=== PATIENT | female | born 1950 | race Caucasian/White ===

== ENCOUNTER → 2017-04-20 08:50 | Outpatient (CLI) | payer MEDICARE, OTHER, MEDICAID, SELFPAY ==
--- NOTE | 2017-04-20 09:07 | MM_ITS ---
MM Dig screening mamm BI w/CAD CAD Screening COMPARISON: Digital mammograms 04/14/2016 and 6 month follow-up digital mammogram left breast 10/27/2016 INDICATION: There is a history of breast cancer in patient's mother diagnosed after menopause and 2 sisters diagnosed before menopause. TECHNIQUE: Standard CC and MLO images were obtained. R2 CAD reviewed. FINDINGS: Moderate diffuse fibroglandular densities are seen in the central portions of both breast and the findings are fairly symmetrical bilaterally. There are stable benign-appearing calcination is in each breast and there is a mole marker left breast. There is no suspicious lesion and no suspicious microcalcifications. IMPRESSION: Stable exam with no suspicious lesion seen recommend yearly follow-up BI-RADS Category: 2 Benign Finding(s) RECOMMENDED FOLLOW-UP: 1YR - 1 YEAR FOLLOW-UP (A letter has been sent to the patient regarding results of the study.)
--- NOTE | 2017-04-20 09:07 | US_ITS ---
US breast LT complete COMPARISON: Ultrasound left breast 10/27/2016 INDICATION: Six-month follow-up ORDERING PHYSICIAN: Nathalie Linarse PATIENT AGE: 67 years TECHNIQUE: Targeted ultrasound upper outer quadrant left breast FINDINGS: There is moderate heterogenic echogenicity consistent with the findings on the mammogram performed the same date again noted is a tiny hypoechoic and likely cystic lesion at the 3:00 position outer breast measuring 0.5 x 0.3 x 0.6 cm. There is normal appearing node in the axilla. No other abnormality seen. IMPRESSION: Stable tiny hypoechoic lesion likely a small cyst in a background of diffuse fibrocystic change, recommend patient continue with yearly screening mammography BI-RADS Category: 2 Benign Finding(s) RECOMMENDED FOLLOW-UP: 1YR - 1 YEAR FOLLOW-UP (A letter has been sent to the patient regarding results of the study.)
== END ==
PROVIDERS: Family Provider Family Medicine; PCP Physician Assistant; Visit Provider Physician Assistant
DX: Z12.31 Encounter for screening mammogram for malignant neoplasm of breast (principal); R92.8 Other abnormal and inconclusive findings on diagnostic imaging of breast
CPT/HCPCS: 19083; 76641; 77067

== ENCOUNTER → 2018-05-04 10:08 | Outpatient (CLI) | payer MEDICARE, MEDICAID, SELFPAY ==
--- NOTE | 2018-05-04 10:15 | MM_ITS ---
MM Dig screening mamm BI w/CAD ORDERING PHYSICIAN : Nathalie Linares PATIENT AGE: 68 years GENDER: Female COMPARISON: April 2016, April 2017, March 2015. Ultrasound, April 2016 INDICATION: Routine SCREENING. No hormones. No new complaints. Positive Family history noted. Mother with breast cancer age 60; also 2 sisters: age 38 and 50 TECHNIQUE: Standard CC and MLO images were obtained. R2 CAD reviewed. FINDINGS: Moderately dense heterogeneous breasts. This pattern does somewhat decrease sensitivity of mammography. Mild asymmetry... RIGHT BREAST:No new findings of concern at the right breast. A dense cluster of benign calcifications seen at the inferior breast and superior breast as well as deep superior breast. No significant change. LEFT BREAST:. . Small 5.3 mm nodular density labeled X at the deep mid left breast on today's MLO view. Unimpressive slightly more evident today.. Suspect located laterally on the cc view towards 3 o'clock position., & Less likely deep medial breast... A small debris filled cyst was previously identified noted 3:00 on previous ultrasounds and may correlate but since this area slightly more evident today, would suggest additional evaluation particularly in this patient with positive family history. Of possibly the small cyst as previously seen at 3:00 on previous ultrasound from April 2017 and 2016, could account for this area... Also has a few small skin moles which could conceivably account for this density.. Suggest patient return for spot views and ultrasound left breast... IMPRESSION: LEFT BREAST: .Just over 5 mm small round density deep left breast.; More likely towards 3 o'clock position. . A small debris filled cyst was previously seen in this region and may account for this density. However since it is slightly more evident and more generous size on today's MLO study studies, would suggest additional imaging at this time, particularly view of family history.... (Spot views along with ultrasound left breast recommended..). RIGHT BREAST. No new findings. Follow-up in one year. BI-RADS Category: 0 Need Additional Imaging Evaluation RECOMMENDED FOLLOW-UP: IMM - IMMEDIATE FOLLOW-UP RECOMMENDED (A letter has been sent to the patient regarding results of the study.)
== END ==
PROVIDERS: PCP Physician Assistant; Visit Provider Physician Assistant
DX: Z12.31 Encounter for screening mammogram for malignant neoplasm of breast (principal)
CPT/HCPCS: 77067

== ENCOUNTER → 2018-05-18 13:14 | Outpatient (CLI) | payer MEDICARE, MEDICAID, SELFPAY ==
--- NOTE | 2018-05-18 13:20 | MM_ITS ---
MM Dig mamm DX unilat LT CAD: Left breast ultrasound complete with axilla: INDICATION: Follow-up abnormal mammogram ORDERING PHYSICIAN: Nathalie Linares PATIENT AGE: 68 years COMPARISON: 05/04/2018, 04/20/2017 TECHNIQUE: Proximal soft tissues of the left breast along with left breast ultrasound FINDINGS: Average fibroglandular tissue. There is persistent small areas of asymmetric density in the lateral aspect of the left breast as seen on the cc view. The asymmetry in the medial aspect of the left breast is not confirmed on the spot compression views. There is a persistent 4 mm nodular density in the lateral aspect of the left breast at the 3:00 position which is correspond to the abnormality noted on the screening exam. This does appear well-circumscribed on the rolled views. No malignant appearing mass or malignant microcalcification Left breast ultrasound: 6 mm hypoechoic nodule at 3:00 with some low-level echoes and may represent complex cyst as before. No suspicious nodules evident. This was present on 04/20/2017 ultrasound and is unchanged. IMPRESSION: Nodular density lateral aspect left breast likely corresponds to a debris filled cyst on the ultrasound. No convincing evidence of malignancy. Recommend 6 month follow-up for confirmation due to the increased prominence on the mammogram and low level echoes on ultrasound BI-RADS Category: 3 Probably Benign Finding Short Term Follow-up RECOMMENDED FOLLOW-UP: 6M - 6 MONTH FOLLOW-UP (A letter has been sent to the patient regarding results of the study.)
== END ==
PROVIDERS: PCP Physician Assistant; Visit Provider Physician Assistant
DX: R92.8 Other abnormal and inconclusive findings on diagnostic imaging of breast (principal)
CPT/HCPCS: 76641; 77065

== ENCOUNTER → 2019-04-17 09:20 | Outpatient (CLI) | payer MEDICARE, MEDICAID, SELFPAY ==
[2019-04-17 13:41] LABS: Basophils % 0.7 % (0.1-2.0); Eosinophils # 0.2 K/mm3 (0.0-0.4); Eosinophils % 3.5 % (0.1-12.0); Hemoglobin 12.4 g/dL (12.2-16.2); Lymphocytes # 2.4 K/mm3 (0.7-4.5); Lymphocytes % 37.8 % (10-50); Mean Corpuscular HGB Conc 30.9 g/dL (31.8-35.4); Mean Corpuscular Hemoglobin 26.8 pg (27.0-31.2); Mean Corpuscular Volume 86.7 fl (81-99); Mean Platelet Volume 8.9 fl (7.4-10.4); Monocytes # 0.5 K/mm3 (0.1-1.0); Monocytes % 7.2 % (1.7-9.3); Neutrophils # 3.2 K/mm3 (1.8-7.8); Neutrophils % 50.7 % (37.0-80.0); Platelet Count 301 K/mm3 (142-424); Red Blood Count 4.61 M/mm3 (4.20-5.40); White Blood Count 6.3 K/mm3 (4.8-10.8)
[2019-04-17 14:05] LABS: Alanine Aminotransferase 34 U/L (12-78); Albumin Level 3.7 gm/dL (3.4-5.0); Albumin/Globulin Ratio 1.4 (1.1-1.8); Alkaline Phosphatase 77 U/L (46-116); Anion Gap 13.7 mEq/L (5-15); Aspartate Amino Transferase 39 U/L (15-37); Bilirubin,Total 0.6 mg/dL (0.2-1.0); Blood Urea Nitrogen 8 mg/dL (7-18); Carbon Dioxide 27 mmol/L (21.0-32.0); Chloride 104 mmol/L (98-107); Chol/HDL Ratio 3.2 (1-3.5); Cholesterol 162 mg/dL (140-200); Creatinine,Serum 0.51 mg/dL (0.55-1.02); Estimated Glomerular Filt Rate 120 ml/min (>60); Free Thyroxine Index 3.6 ug/dL (5.93-13.13); GFR (African American) 145 ML/MIN (>60); Globulin 2.7 gm/dl (1.3-3.2); Glucose 144 mg/dL (74-106); HDL Cholesterol 51 mg/dL (29-89); LDL Cholesterol 90 mg/dL (0-130); Potassium 4.7 mmoL/L (3.5-5.1); Sodium 140 mmol/L (136-145); T4 (Thyroxine) 11.2 ug/dl (4.7-13.3); Thyroid Stimulating Hormone 2.66 uIU/ml (0.358-3.740); Total Protein,Serum 6.4 gm/dL (6.4-8.2); Triglycerides 103 mg/dL (30-200); Triiodothryronine (T3) Uptake 32 % (31-39); VLDL Cholesterol 21 mg/dL (0-40)
[2019-04-17 15:04] LABS: Hemoglobin A1C 7.2 % (0.0-7.0)
[2019-04-18 15:40] LABS: Vitamin D 25 Hydroxy 17.8 ng/mL (30.0-100.0)
== END ==
PROVIDERS: Visit Provider Nurse Practitioner Family
DX: E11.65 Type 2 diabetes mellitus with hyperglycemia (principal); E03.9 Hypothyroidism, unspecified; E78.49 Other hyperlipidemia; E55.9 Vitamin D deficiency, unspecified
CPT/HCPCS: 36415; 80053; 80061; 82652; 83036; 84436; 84443; 84479; 85025

== ENCOUNTER → 2020-12-07 10:44 | Outpatient (CLI) | payer MEDICARE, MEDICAID, SELFPAY | PROVIDERS: Visit Provider Surgery | DX: Z01.812 Encounter for preprocedural laboratory examination (principal); Z20.822 Contact with and (suspected) exposure to COVID-19; Z12.11 Encounter for screening for malignant neoplasm of colon | CPT/HCPCS: U0003 ==

== ENCOUNTER 2020-12-09 06:56 | Day surgery (SDC) | payer MEDICARE, MEDICAID, SELFPAY ==
[2020-12-02 11:35] VITALS: BMI 34.9
[2020-12-09] VITALS (7 sets, daily range): BP systolic 93–135; BP diastolic 53–90; PULSE 52–70; RESP 15–18; TEMP 36.2–36.3; O2SAT 92–98
[2020-12-09 07:34] LABS: POC Glucose,Bedside 106 (70-110)
--- NOTE | 2020-12-09 08:45 | HMH.ANESCL ---
[facility] Anesthesia Checklist - Patient Identification Patient Identification: Arm Band - Structural Data Admitted From: Home Planned Operative Procedure/s: colonoscopy Consent for Planned Operative Procedure(s) Verified: Yes Verified Documents: Surgical Consent, History and Physical - NPO Status Verified Time NPO: 00:00 - Additional verifications Anesthesia Reactions: No - Airway Assessment C-Spine Mobility Assessed: Yes (mp2) TMJ Mobility Assessed: Yes Dentition: Good Dentition - Neurological Assessment Level of Consciousness: Awake, Alert - Anesthesia Plan Anesthesia Risk discussed: Yes Anesthesia Plan: Verified ASA Class: III Anesthesia Type: MAC [facility] History I have reviewed the patient's past medical history: Yes Medical History: Reports:: Diabetes Mellitus Type 2, Hyperlipidemia, Hypertension Denies:: Cancer, Diabetes Mellitus Type 1, Internal Pacemaker, MRSA, Seizures *Have you ever received a pneumonia vaccine?: Yes *Have you received a flu vaccine this season?: Yes Other Medical History: Reports: Thyroid Disease Anesthesia experience/problems:: nac Other Surgeries: Yes: Colonoscopy, Hysterectomy-Total. No: Pacemaker Amputation: No Fractures: No - *Social History Last grade of school completed: High school graduate Smoking Status: Never smoker Alcohol Intake: never Substance Use Type: denies use *Occupational Status:: retired Housing: house Household Members: family *Travel in the last 8 weeks: None Family Hx:: Cancer, Diabetes
--- NOTE | 2020-12-09 09:03 | P.PCN_ITS ---
- Procedure: Date: 12/09/20 Patient Date of :: 1950 Procedure Performed:: Colonoscopy with polypectomy by snare Indications:: Patient is a 70-year-old female from [place] who presents for follow-up colonoscopy. Her primary care provider is Syeda Choe. I performed colonoscopy on 05/06/2014 at which time she had a tubular adenoma in the ascending colon. 5- year colonoscopy was recommended. She is asymptomatic. Performing Provider:: Elijah Keith MD Referring Provider:: Syeda Choe Sedation:: MAC sedation Procedure:: Patient was positioned in lateral decubitus position. Adequate intravenous sedation was achieved with anesthesia titration of propofol. Digital anal examination was performed which was unremarkable. Variable stiffness Olympus colonoscope was inserted via the anus. It was advanced to the cecum. Colonic preparation was good. Ileocecal valve and appendiceal orifice were clearly identified. Colonoscope was slowly withdrawn from the colon with careful surveillance. She was noted to have a moderate adenomatous appearing polyp just distal to the ileocecal valve. This measured up to about 1 cm. This was removed with cold cutting snare. Colonoscope was withdrawn through the remainder of the colon. In the distal sigmoid colon she had significant diverticulosis. Retroflexion within the rectum was performed which revealed nonpathologic internal hemorrhoids. Colonoscope was withdrawn. Findings:: Moderate adenomatous polyp in the ascending colon Significant distal sigmoid diverticulosis Recommendations:: Pending pathology likely repeat colonoscopy 5 years Complications:: None immediately apparent Estimated blood obtained (mL): 2
== END 2020-12-09 09:45 | disposition home or self-care (01) ==
LOC: OUTP 06:58
PROVIDERS: PCP Nurse Practitioner Family; Visit Provider Surgery
PROC: 0DJD8ZZ Inspection of Lower Intestinal Tract, Via Natural or Artificial Opening Endoscopic (ICD-10-PCS; principal; 2020-12-09 08:00)
DX: Z12.11 Encounter for screening for malignant neoplasm of colon (principal); K64.0 First degree hemorrhoids; K63.5 Polyp of colon; K57.32 Diverticulitis of large intestine without perforation or abscess without bleeding; Z86.010 Personal history of colon polyps; E11.9 Type 2 diabetes mellitus without complications; E78.5 Hyperlipidemia, unspecified; I10 Essential (primary) hypertension; Z80.9 Family history of malignant neoplasm, unspecified; Z83.3 Family history of diabetes mellitus
CPT/HCPCS: 45385; 82962; 88305; J2704

== ENCOUNTER → 2021-11-29 06:25 | Outpatient (CLI) | payer MEDICARE, MEDICAID, SELFPAY ==
[2021-11-29 18:59] LABS: Alanine Aminotransferase 18 U/L (12-78); Albumin/Globulin Ratio 1.5 (1.1-1.8); Alkaline Phosphatase 93 U/L (38-126); Anion Gap 14.3 mEq/L (5-15); Aspartate Amino Transferase 32 U/L (14-36); Basophils % 0.7 % (0.1-2.0); Bilirubin,Total 0.6 mg/dl (0.2-1.3); Blood Urea Nitrogen 7 mg/dl (7-17); Calcium 9.6 mg/dl (8.4-10.2); Carbon Dioxide 24 mmol/L (22.0-30.0); Chloride 105 mmol/L (98-107); Chol/HDL Ratio 2.5 (1-3.5); Cholesterol 149 mg/dl (140-200); Eosinophils # 0.1 K/mm3 (0.0-0.4); Eosinophils % 1.7 % (0.1-12.0); Estimated Glomerular Filt Rate 157 ml/min (>60); GFR (African American) 190 ML/MIN (>60); Globulin 2.6 g/dL (1.3-3.2); Glucose 115 mg/dl (74-100); HDL Cholesterol 60 mg/dl (40-60); Hematocrit 38.7 % (37.0-47.0); Hemoglobin 12.2 g/dL (12.2-16.2); Lymphocytes # 2.1 K/mm3 (0.7-4.5); Lymphocytes % 34.1 % (10-50); Mean Corpuscular HGB Conc 31.6 g/dL (31.8-35.4); Mean Corpuscular Hemoglobin 26.2 pg (27.0-31.2); Mean Corpuscular Volume 83.1 fl (81-99); Mean Platelet Volume 9.9 fl (7.4-10.4); Monocytes # 0.5 K/mm3 (0.1-1.0); Monocytes % 7.9 % (1.7-9.3); Neutrophils # 3.4 K/mm3 (1.8-7.8); Neutrophils % 55.6 % (37.0-80.0); Platelet Count 285 K/mm3 (142-424); Potassium 4.3 mmoL/L (3.5-5.1); Red Blood Count 4.65 M/mm3 (4.20-5.40); Red Cell Distribution Width 13.5 % (11.5-17.5); Sodium 139 mmol/L (136-145); Total Protein,Serum 6.6 g/dl (6.3-8.2); Triglycerides 81 mg/dl (30-150); VLDL Cholesterol 16 mg/dL (0-40); White Blood Count 6.1 K/mm3 (4.8-10.8)
[2021-11-29 19:30] LABS: Thyroid Stimulating Hormone 0.02 uIU/mL (0.465-4.68)
[2021-11-29 21:34] LABS: Hemoglobin A1C 5.9 % (4.0-6.0)
[2021-12-01 09:46] LABS: Direct LDL Cholesterol 71 mg/dL (100-129)
== END ==
PROVIDERS: PCP Family Medicine; Visit Provider Family Medicine
DX: Z00.00 Encounter for general adult medical examination without abnormal findings (principal); I10 Essential (primary) hypertension; E03.9 Hypothyroidism, unspecified; E11.9 Type 2 diabetes mellitus without complications; Z79.84 Long term (current) use of oral hypoglycemic drugs
CPT/HCPCS: 80053; 80061; 83036; 84443; 85025

== ENCOUNTER → 2022-03-22 10:15 | Outpatient (CLI) | payer MEDICARE, MEDICAID, SELFPAY ==
[2022-03-22 19:36] LABS: Hemoglobin A1C 5.8 % (4.0-6.0)
== END ==
PROVIDERS: PCP Family Medicine; Visit Provider Family Medicine
DX: E11.9 Type 2 diabetes mellitus without complications (principal)
CPT/HCPCS: 83036

== ENCOUNTER → 2022-07-05 17:24 | Outpatient (CLI) | payer MEDICARE, MEDICAID, SELFPAY ==
[2022-07-05 17:06] LABS: Hemoglobin A1C 5.6 % (4.0-6.0)
== END ==
PROVIDERS: PCP Family Medicine; Visit Provider Family Medicine
DX: E11.9 Type 2 diabetes mellitus without complications (principal); Z79.84 Long term (current) use of oral hypoglycemic drugs
CPT/HCPCS: 83036

== ENCOUNTER → 2022-11-09 23:12 | Outpatient (CLI) | payer MEDICARE, MEDICAID, SELFPAY ==
[2022-11-09 17:07] LABS: Basophils % 0.7 % (0.1-2.0); Eosinophils # 0.2 K/mm3 (0.0-0.4); Eosinophils % 4.1 % (0.1-12.0); Hematocrit 40.1 % (37.0-47.0); Hemoglobin 12.8 g/dL (12.2-16.2); Lymphocytes # 1.8 K/mm3 (0.7-4.5); Lymphocytes % 35.7 % (10-50); Mean Corpuscular HGB Conc 31.8 g/dL (31.8-35.4); Mean Corpuscular Hemoglobin 26.4 pg (27.0-31.2); Mean Corpuscular Volume 83.1 fl (81-99); Mean Platelet Volume 9.7 fl (7.4-10.4); Monocytes # 0.5 K/mm3 (0.1-1.0); Monocytes % 9.5 % (1.7-9.3); Neutrophils # 2.5 K/mm3 (1.8-7.8); Platelet Count 278 K/mm3 (142-424); Red Blood Count 4.83 M/mm3 (4.20-5.40); Red Cell Distribution Width 14.1 % (11.5-17.5); White Blood Count 4.9 K/mm3 (4.8-10.8)
[2022-11-09 17:42] LABS: Alanine Aminotransferase 20 U/L (12-78); Albumin Level 3.9 g/dl (3.5-5.0); Albumin/Globulin Ratio 1.4 (1.1-1.8); Alkaline Phosphatase 105 U/L (38-126); Anion Gap 11.4 mEq/L (5-15); Aspartate Amino Transferase 33 U/L (14-36); Bilirubin,Total 0.6 mg/dl (0.2-1.3); Blood Urea Nitrogen 10 mg/dl (7-17); Calcium 9.1 mg/dl (8.4-10.2); Carbon Dioxide 27 mmol/L (22.0-30.0); Chloride 105 mmol/L (98-107); Chol/HDL Ratio 2.6 (1-3.5); Cholesterol 169 mg/dl (140-200); Estimated Glomerular Filt Rate 121 ml/min (>60); GFR (African American) 147 ML/MIN (>60); Globulin 2.7 g/dL (1.3-3.2); Glucose 121 mg/dl (74-100); HDL Cholesterol 65 mg/dl (40-60); Potassium 4.4 mmoL/L (3.5-5.1); Sodium 139 mmol/L (136-145); Total Protein,Serum 6.6 g/dl (6.3-8.2); Triglycerides 89 mg/dl (30-150); VLDL Cholesterol 18 mg/dL (0-40)
[2022-11-09 17:55] LABS: Direct LDL Cholesterol 85.68 mg/dL (100-129)
[2022-11-09 18:13] LABS: Thyroid Stimulating Hormone 3.95 uIU/mL (0.465-4.68)
[2022-11-09 18:42] LABS: Hemoglobin A1C 6.2 % (4.0-6.0)
[2022-11-09 18:53] LABS: Creatinine,Urine Random 49 mg/dL (Not Estab.)
[2022-11-09 18:57] LABS: Microalbumin/Creatinine Ratio 17.3
== END ==
PROVIDERS: PCP Family Medicine; Visit Provider Family Medicine
DX: E03.9 Hypothyroidism, unspecified (principal); E11.9 Type 2 diabetes mellitus without complications; E78.5 Hyperlipidemia, unspecified; I10 Essential (primary) hypertension
CPT/HCPCS: 80053; 80061; 82043; 82570; 83036; 84443; 85025

== ENCOUNTER → 2023-03-08 16:23 | Outpatient (CLI) | payer MEDICARE, MEDICAID, SELFPAY | PROVIDERS: PCP Family Medicine; Visit Provider Family Medicine | DX: E11.9 Type 2 diabetes mellitus without complications (principal) | CPT/HCPCS: 83036 ==

== ENCOUNTER 2023-06-12 17:53 | Outpatient (CLI) | payer MEDICARE, MEDICAID, SELFPAY | END 2023-06-12 23:59 | LOC: LAB.DROPOF 17:53 | PROVIDERS: PCP Family Medicine; Visit Provider Family Medicine | DX: E11.9 Type 2 diabetes mellitus without complications (principal); Z79.84 Long term (current) use of oral hypoglycemic drugs | CPT/HCPCS: 83036 ==

== ENCOUNTER 2023-07-30 12:48 | Emergency (ER) | payer MEDICARE, MEDICAID, SELFPAY ==
[2023-07-30 13:45] VITALS: BP 126/69; PULSE 77; RESP 18; TEMP 36.5; O2SAT 96; BMI 34.9
--- NOTE | 2023-07-30 14:24 | EXP.UTC ---
Discharge Plan Disposition Patient Disposition: Home, Self-Care Condition: Good Prescriptions Prescriptions: No Action aspirin 81 mg tablet,delayed release (DR/EC) 81 mg PO DAILY Qty: 90 3RF nystatin 100,000 unit/gram cream 1 applic topical BID Qty: 30 2RF levothyroxine 100 mcg tablet 100 mcg PO DAILY 90 Days Qty: 90 1RF losartan 25 mg tablet 25 mg PO DAILY 90 Days Qty: 90 1RF metoprolol succinate 25 mg tablet extended release 24 hr 25 mg PO DAILY 90 Days Qty: 90 1RF pravastatin 40 mg tablet 40 mg PO DAILY 90 Days Qty: 90 1RF cholecalciferol (vitamin D3) 125 mcg (5,000 unit) capsule 125 mcg PO DAILY Referrals Follow up/Referrals: Jose Dukes MD [Primary Care Provider] - See instructions Activity Restrictions/Add. Instructions Additional Instructions/Restrictions: Get some Artificial Tears over the counter and use in eye if feeling dry, burning or irritation Make take up to a week to return to normal [place] may cause blood toward the bottom of eye Do not rub Follow up with your Eye Doctor immediately if and vision trouble or changes Clinical Impressions Clinical Impression: Subconjunctival hemorrhage Instructions Patient Instructions: DI for Subconjunctival Hemorrhage Discharge ED Provider: Riddhi Sandra [facility] [place] HPI General Stated complaint: left eye watering Mode of Arrival: Ambulatory Source of Information: Patient Limitations: No Limitations Time Seen by Provider: 07/30/23 14:24 Description of Symptoms (Recalled from Triage Doc. by RN): Pt has blood in left eye that came up after islam today. She states that she has no had any trauma to her eye. She has been coughing. HEENT Symptoms (Recalled from RN notes): Yes Resp Symptoms (Recalled from RN notes): No Skin Symptoms (Recalled from RN notes): No MS Symptoms (Recalled from RN notes): No Functional Status (Recalled from RN notes): n/a History of Present Illness Provider Complaint: Patient states that she has allegies and has had a cough, States that she was at [facility] earlier and noticed her left eye looked red like it blood in the white of her eye States that she hasnt done anything to it denies injury, denies eye pain, denies changes in vision just has blood in the white of her eye Related Data Home Medications Medication Instructions Recorded Confirmed cholecalciferol (vitamin D3) 125 125 mcg PO DAILY 10/05/21 07/30/23 mcg (5,000 unit) capsule Previous Rx's Medication Instructions Recorded levothyroxine 100 mcg tablet 100 mcg PO DAILY thyroid 90 days 03/21/23 #90 tabs losartan 25 mg tablet 25 mg PO DAILY bp 90 days #90 tabs 03/21/23 metoprolol succinate 25 mg 25 mg PO DAILY bp 90 days #90 tabs 03/21/23 tablet,extended release 24 hr pravastatin 40 mg tablet 40 mg PO DAILY HLD 90 days #90 tabs 03/21/23 aspirin 81 mg tablet,delayed 81 mg PO DAILY #90 tabs 06/12/23 release nystatin 100,000 unit/gram topical 1 applic topical BID #30 grams 06/12/23 cream Allergies Allergy/AdvReac Type Severity Reaction Status Date / Time erythromycin base Allergy Intermediate I-HIVES Verified 07/30/23 14:16 [ERYTHROMYCIN BASE] KEROSENE HEATER FUMES Allergy Intermediate I-HIVES Uncoded 06/12/23 09:41 SHRIMP Allergy Intermediate I-HIVES Uncoded 06/12/23 09:41 Worker's Comp Is this a Worker's Comp case?: No [facility] Disclaimer: The information contained in this section may have been updated after the patient was seen, as this information can be updated by other users. Medical History Hypothyroidism Diabetes mellitus Cataract Thyroid disease Vitamin D deficiency Hyperlipidemia Hypertension Diabetes mellitus will lower metformin ER to 500 mg per day. check A1c today and then recheck in 4 months. Surgical History History of hysterectomy Hx of cardiac cath H/O tubal ligation Family History Mother Cancer Grandmother Coronary artery disease Grandfather Coronary artery disease Father Cancer Social History Smoking Status: Never smoker second hand exposure: No alcohol intake: never substance use type: denies use current occupational status: retired Travel in the last 8 weeks: None household members: family housing: house current occupational exposures/hazards: No caffeine: Yes ROS Obtained: Yes All systems reviewed & no additional complaints except as documented and Yes Systems reviewed as appropriate & no additional complaints except as documented Constitutional Constitutional: Reports system reviewed and no additional complaints, except as documented and Reports as per HPI Eyes Eyes: Reports system reviewed and no additional complaints, except as documented, Reports as per HPI, Denies blurry vision, Denies change in vision, Denies eye discharge, Denies loss of vision, Denies sensitivity to light, Denies eye pain, Denies photophobia, Denies seeing flashes, Denies tunnel vision and Reports other (blood in the white of her eye ) ENT Ears, Nose, Mouth, and Throat: Reports system reviewed and no additional complaints, except as documented and Reports as per HPI Cardiovascular Cardiovascular: Reports system reviewed and no additional complaints, except as documented and Reports as per HPI Respiratory Respiratory: Reports system reviewed and no additional complaints, except as documented, Reports as per HPI and Reports cough Gastrointestinal Gastrointestingal: Reports system reviewed and no additional complaints, except as documented and as per HPI Neurologic Neurologic: Denies loss of vision Physical Exam General General appearance: alert and in no apparent distress Eye Eye exam: Present PERRL and other (subconjunctival hemorrhage noted); Absent discharge, periorbital swelling or periorbital tenderness Respiratory Respiratory exam: Present normal lung sounds bilaterally; Absent respiratory distress or wheezes Cardiovascular Cardiovascular exam: Present regular rate, normal rhythm and normal heart sounds Neurological Exam Neurological exam: Present alert, oriented X3 and normal gait Medical Decision Making Diomedes Inquiry Pt receiving controlled substance: No Diomedes was queried for this patient: No Vital Signs: 07/30/23 13:45 Temperature 97.7 F Temperature Source Oral Pulse Rate [Right Radial] 77 Respiratory Rate 18 Blood Pressure [Right Arm] 126/69 Blood Pressure Mean [Right Arm] 88 Blood Pressure Source [Right Arm] Automatic Cuff Blood Pressure Position [Right Arm] Sitting 02 Sat by Pulse Oximetry 96 Oxygen Delivery Method Room Air
[2023-07-30 14:45] VITALS: BP 126/69; PULSE 77; RESP 18; TEMP 36.5; O2SAT 96
== END 2023-07-30 14:45 | disposition home or self-care (01) ==
PROVIDERS: Emergency Provider Nurse Practitioner; PCP Family Medicine
DX: H11.32 Conjunctival hemorrhage, left eye (principal); R05.9 Cough, unspecified
CPT/HCPCS: 99203; 99212; G0463

== ENCOUNTER 2023-08-09 10:51 | Outpatient (CLI) | payer MEDICARE, MEDICAID, SELFPAY ==
[2023-08-09 16:30] LABS: Basophils # 0.1 K/mm3 (0-0.2); Basophils % 1.3 % (0.1-2.0); Eosinophils # 0.1 K/mm3 (0.0-0.4); Eosinophils % 2.3 % (0.1-12.0); Hematocrit 42.8 % (37.0-47.0); Hemoglobin 13.6 g/dL (12.2-16.2); Lymphocytes # 1.9 K/mm3 (0.7-4.5); Mean Corpuscular HGB Conc 31.8 g/dL (31.8-35.4); Monocytes # 0.4 K/mm3 (0.1-1.0); Monocytes % 8.7 % (1.7-9.3); Neutrophils # 2.4 K/mm3 (1.8-7.8); Neutrophils % 48.6 % (37.0-80.0); Platelet Count 255 K/mm3 (142-424); Red Blood Count 5.04 M/mm3 (4.20-5.40); Red Cell Distribution Width 14.4 % (11.5-17.5)
[2023-08-09 16:34] LABS: Chloride 105 mmol/L (98-107); Potassium 4.7 mmoL/L (3.5-5.1); Sodium 138 mmol/L (136-145)
[2023-08-09 16:37] LABS: Alanine Aminotransferase 15 U/L (12-78); Albumin/Globulin Ratio 1.4 (1.1-1.8); Alkaline Phosphatase 99 U/L (38-126); Anion Gap 9.7 mEq/L (5-15); Aspartate Amino Transferase 33 U/L (14-36); Blood Urea Nitrogen 12 mg/dl (7-17); Calcium 9.8 mg/dl (8.4-10.2); Carbon Dioxide 28 mmol/L (22.0-30.0); Estimated Glomerular Filt Rate 98 ml/min (>60); GFR (African American) 119 ML/MIN (>60); Globulin 2.8 g/dL (1.3-3.2); Glucose 119 mg/dl (74-100); Iron 114 ug/dL (37-170); Total Protein,Serum 6.8 g/dl (6.3-8.2)
[2023-08-09 16:47] LABS: Total Iron Binding Capacity 355 ug/dL (265-497)
[2023-08-09 17:10] LABS: Thyroid Stimulating Hormone 0.71 uIU/mL (0.465-4.68)
== END 2023-08-09 23:59 | disposition home or self-care (01) ==
PROVIDERS: PCP Family Medicine; Visit Provider Family Medicine
DX: E03.9 Hypothyroidism, unspecified (principal); R53.83 Other fatigue; Z86.2 Personal history of diseases of the blood and blood-forming organs and certain disorders involving the immune mechanism
CPT/HCPCS: 80053; 83540; 83550; 84443; 85025

== ENCOUNTER 2023-11-21 16:18 | Outpatient (CLI) | payer MEDICARE, MEDICAID, SELFPAY ==
[2023-11-21 18:02] LABS: Basophils % 0.6 % (0.1-2.0); Eosinophils # 0.2 K/mm3 (0.0-0.4); Eosinophils % 3.6 % (0.1-12.0); Hematocrit 42.6 % (37.0-47.0); Lymphocytes % 31.2 % (10-50); Mean Corpuscular HGB Conc 30.4 g/dL (31.8-35.4); Mean Corpuscular Hemoglobin 26.6 pg (27.0-31.2); Mean Corpuscular Volume 87.3 fl (81-99); Mean Platelet Volume 10.1 fl (7.4-10.4); Monocytes # 0.5 K/mm3 (0.1-1.0); Monocytes % 8.1 % (1.7-9.3); Neutrophils # 3.7 K/mm3 (1.8-7.8); Neutrophils % 56.6 % (37.0-80.0); Platelet Count 300 K/mm3 (142-424); Red Blood Count 4.88 M/mm3 (4.20-5.40); Red Cell Distribution Width 14.7 % (11.5-17.5); White Blood Count 6.5 K/mm3 (4.8-10.8)
[2023-11-21 18:11] LABS: Creatinine,Urine Random > 347 mg/dL (Not Estab.); Microalbumin/Creatinine Ratio 16.3
[2023-11-21 18:53] LABS: Hemoglobin A1C 6.5 % (4.0-6.0)
[2023-11-21 19:41] LABS: Alanine Aminotransferase 20 U/L (12-78); Albumin Level 3.8 g/dl (3.5-5.0); Albumin/Globulin Ratio 1.3 (1.1-1.8); Alkaline Phosphatase 92 U/L (38-126); Anion Gap 10.2 mEq/L (5-15); Aspartate Amino Transferase 34 U/L (14-36); Bilirubin,Total 0.8 mg/dl (0.2-1.3); Blood Urea Nitrogen 10 mg/dl (7-17); Calcium 9.4 mg/dl (8.4-10.2); Carbon Dioxide 26 mmol/L (22.0-30.0); Chloride 106 mmol/L (98-107); Estimated Glomerular Filt Rate 98 ml/min (>60); GFR (African American) 119 ML/MIN (>60); Globulin 2.9 g/dL (1.3-3.2); Glucose 174 mg/dl (74-100); Potassium 4.2 mmoL/L (3.5-5.1); Sodium 138 mmol/L (136-145); Total Protein,Serum 6.7 g/dl (6.3-8.2)
[2023-11-21 20:05] LABS: Thyroid Stimulating Hormone 0.63 uIU/mL (0.465-4.68)
== END 2023-11-21 23:59 | disposition home or self-care (01) ==
LOC: LAB.DROPOF 11-22 16:18
PROVIDERS: PCP Family Medicine; Visit Provider Family Medicine
DX: E11.9 Type 2 diabetes mellitus without complications (principal); E03.9 Hypothyroidism, unspecified
CPT/HCPCS: 80050; 80053; 82043; 82570; 83036; 84443; 85025

== ENCOUNTER 2024-05-20 09:47 | Outpatient (CLI) | payer MEDICARE, MEDICAID, SELFPAY ==
[2024-05-20 17:45] LABS: Basophils # 0.1 K/mm3 (0-0.2); Basophils % 0.9 % (0.1-2.0); Eosinophils # 0.2 K/mm3 (0.0-0.4); Eosinophils % 2.9 % (0.1-12.0); Hematocrit 41.9 % (37.0-47.0); Hemoglobin 13.2 g/dL (12.2-16.2); Lymphocytes # 1.7 K/mm3 (0.7-4.5); Mean Corpuscular HGB Conc 31.5 g/dL (31.8-35.4); Mean Corpuscular Hemoglobin 26.6 pg (27.0-31.2); Mean Corpuscular Volume 84.5 fl (81-99); Mean Platelet Volume 11.6 fl (7.4-10.4); Monocytes # 0.7 K/mm3 (0.1-1.0); Monocytes % 11.9 % (1.7-9.3); Neutrophils # 2.9 K/mm3 (1.8-7.8); Neutrophils % 53.1 % (37.0-80.0); Platelet Count 228 K/mm3 (142-424); Red Blood Count 4.96 M/mm3 (4.20-5.40); Red Cell Distribution Width 13.9 % (11.5-17.5); White Blood Count 5.5 K/mm3 (4.8-10.8)
[2024-05-20 18:08] LABS: 25-OH Vitamin D, Total 37.6 ng/mL (30-100)
[2024-05-20 18:09] LABS: Alanine Aminotransferase 23 U/L (12-78); Albumin Level 4.4 g/dl (3.5-5.0); Albumin/Globulin Ratio 1.8 (1.1-1.8); Alkaline Phosphatase 84 U/L (38-126); Aspartate Amino Transferase 41 U/L (14-36); Bilirubin,Total 0.9 mg/dl (0.2-1.3); Blood Urea Nitrogen 11 mg/dl (7-17); Calcium 9.4 mg/dl (8.4-10.2); Carbon Dioxide 28 mmol/L (22.0-30.0); Chloride 100 mmol/L (98-107); Chol/HDL Ratio 2.3 (1-3.5); Cholesterol 169 mg/dl (140-200); Estimated Glomerular Filt Rate 121 ml/min (>60); GFR (African American) 146 ML/MIN (>60); Globulin 2.5 g/dL (1.3-3.2); Glucose 109 mg/dl (74-100); HDL Cholesterol 72 mg/dl (40-60); Sodium 138 mmol/L (136-145); Total Protein,Serum 6.9 g/dl (6.3-8.2); Triglycerides 84 mg/dl (30-150); VLDL Cholesterol 17 mg/dL (0-40)
[2024-05-20 18:46] LABS: HIV Combo NEGATIVE (Negative)
[2024-05-20 18:55] LABS: Hepatitis C Ab Qual. W/ RFX NEGATIVE (Negative)
[2024-05-20 19:16] LABS: Microalbumin/Creatinine Ratio 8.2
[2024-05-20 19:24] LABS: Creatinine,Urine Random 117 mg/dL (Not Estab.)
[2024-05-20 20:33] LABS: Direct LDL Cholesterol 83.92 mg/dL (100-129)
[2024-05-20 20:53] LABS: Thyroid Stimulating Hormone 1.68 uIU/mL (0.465-4.68)
== END 2024-05-20 23:59 | disposition home or self-care (01) ==
LOC: LAB.DROPOF 05-22 10:26
PROVIDERS: PCP Family Medicine; Visit Provider Family Medicine
DX: E11.9 Type 2 diabetes mellitus without complications (principal); E66.9 Obesity, unspecified; Z68.35 Body mass index [BMI] 35.0-35.9, adult; Z11.59 Encounter for screening for other viral diseases
CPT/HCPCS: 80053; 80061; 82043; 82306; 82570; 84443; 85025; 86803; 87389

== ENCOUNTER 2025-01-28 09:45 | Outpatient (CLI) | payer MEDICARE, MEDICAID, SELFPAY ==
[2025-01-28 17:08] LABS: Hematocrit 39.9 % (37.0-47.0); Hemoglobin 12.4 g/dL (12.2-16.2); Immature Granulocytes % 1.6 %; Mean Corpuscular HGB Conc 31.1 g/dL (31.8-35.4); Mean Corpuscular Hemoglobin 27.1 pg (27.0-31.2); Mean Corpuscular Volume 87.1 fl (81-99); Nucleated Red Blood Cells % 0 %; Platelet Count 225 K/mm3 (142-424); Red Blood Count 4.58 M/mm3 (4.20-5.40); Red Cell Distribution Width-SD 45.4 fL; White Blood Count 26.3 K/mm3 (4.8-10.8)
[2025-01-28 18:05] LABS: Total Cells Counted 100
[2025-01-28 18:06] LABS: Giant Platelets 1+; RBC Morphology Normal
[2025-01-28 18:54] LABS: Anion Gap 16.3 mEq/L (5-15); Blood Urea Nitrogen 20 mg/dl (7-17); Calcium 9.1 mg/dl (8.4-10.2); Carbon Dioxide 22 mmol/L (22.0-30.0); Chloride 96 mmol/L (98-107); Creatinine,Serum 0.80 mg/dl (0.52-1.04); Estimated Glomerular Filt Rate 70 ml/min (>60); GFR (African American) 85 ML/MIN (>60); Glucose 167 mg/dl (74-100); Potassium 4.3 mmoL/L (3.5-5.1); Sodium 130 mmol/L (136-145)
== END 2025-01-28 23:59 ==
LOC: LAB.DROPOF 01-29 12:30
PROVIDERS: PCP Family Medicine; Visit Provider Family Medicine
DX: I10 Essential (primary) hypertension (principal); R68.83 Chills (without fever)
CPT/HCPCS: 80048; 85007; 85025

== ENCOUNTER 2025-01-29 12:26 | Outpatient (CLI) | payer MEDICARE, MEDICAID, SELFPAY ==
--- OUTSIDE RECORDS SUMMARY | 2025-01-29 12:28 | XMS_ITS | Clinical Summary ---
Author Organization [facility] Address [address] [place], [place] [id number] Care Team Providers Care Drug Worker Name Role Phone Jose Dukes MD Primary Care Provider Shea vailable Allergies Active Allergy Reactions Criticality Noted Date Comments Erythromycin Hives Medium 01/27/2021 Family History Medical History Relation Name Comments Breast cancer Mother Breast cancer Sister 1 Breast cancer Sister 2 50s Relation Name Status Comments Mother Sister 1 Sister 2 Social History Tobacco Use Types Packs/Day Years Used Date Smoking Tobacco: Never Smokeless Tobacco: Never Comments No Sex and Gender Information Value Date Recorded Sex Assigned at Not on file Legal Sex Female 7:56 PM EDT Gender Identity Not on file Sexual Orientation Not on file Last Filed Vital Signs Vital Sign Reading Time Taken Comments Blood Pressure - - Pulse - - Temperature - - Respiratory Rate - - Oxygen Saturation - - Inhaled Oxygen Concentration - - Weight 75.3 kg (166 lb) 02/08/2023 2:44 PM EST Height 149.9 cm (4' 11 ) 02/08/2023 2:44 PM EST Body Mass Index 33.53 02/08/2023 2:44 PM EST Plan of Treatment Health Maintenance Due Date Last Done Comments [facility]-Bone Density Scan 1950 [facility]-Depression Screening 1950 [facility]-Hepatitis C Screening 1950 [facility]-Medicare Annual Wellness (AWV) 1950 [facility]-Infant/Child/Adol SDOH Screenings 1950 [facility]-Obesity Intervention 1956 [facility]- SDOH Screenings 1968 [facility]-Adult SDOH Screenings 1968 CT Colonography 1995 Colonoscopy 1995 FIT-DNA 1995 FIT 1995 FOBT 1995 Sigmoidoscopy 1995 [facility]-Colorectal Cancer Screening 1995 [facility]-Zoster Vaccines (1 of 2) 2000 [facility]-DTaP,Tdap,and Td Vaccines (2 - Td or Tdap) 08/08/2022 08/08/2012 [id number] Vaccine (4 - season) 2024 04/14/2021, 06/25/2020, 05/28/2020 [facility]-Influenza Vaccine (#1) 12/02/202403/22, 05/20/2021, 04/14/2020, Additional history exists [facility]-RSV Vaccine: 60+ Years or (1 - 1-dose 75+ series) 2025 [facility]-Breast Cancer Screening 03/20/202603/03, 02/08/2023, 01/28/2022, Additional history exists [facility]-Pneumococcal Vaccine: 50+ Years Completed 11/09/2022, 01/17/2019 HPV Vaccines Aged Out No longer eligi ble based on patient's age to complete this topic [facility]-HIB Vaccines Aged Out No longer e ligible based on patient's age to complete this topic [facility]-Hepatitis A Vaccines Aged Out No longer eligible based on patient's age to complete this topic [facility]-IPV Vaccines Aged Out No longer e ligible based on patient's age to complete this topic [facility]-Rotavirus Vaccines Aged Out No lo nger eligible based on patient's age to complete this topic Procedures Procedure Name Priority Date/Time Associated Diagnosis Comments MAMMOGRAPHY BREAST SCREENING TOMOSYNTHESIS BILATERAL Routine 03/20/2024 11:33 AM EST Visit for screening mammogram from Last 3 Months or Most Recently Relevant to Health Maintenance Results * Mammography Breast Screening Tomosynthesis Bilateral (03/20/2024 11:33 AM EST) Anatomical Region Laterality Modality Breast Bilateral Mammography Impressions 03/21/2024 1:02 PM EST No mammographic evidence of malignancy. BI-RADS CATEGORY: Overall: 2 - Benign RECOMMENDATION: - Routine Screening Mammogram in 1 Year. Patient Lifetime Risk Score of Breast Malignancy: 19.1% This risk assessment is calculated using the Lisa Risk Assessment model which may underestimate the lifetime risk of breast malignancy. COMMUNICATION: Computer-aided detection (CAD) and tomosynthesis were utilized by the radiologist in the interpretation of this examination. The results and recommendations will be sent to the patient in a printed lay language version of the imaging report. Narrative 03/21/2024 1:02 PM EST EXAM: Mammography Breast Screening with Tomosynthesis REASON FOR EXAM: Screening Mammogram HISTORY: Patient is 73 y.o. Family medical history includes breast cancer in 3 relatives (mother (age of onset: 60), sister (age of onset: 38), sister (comments: 50s)). Surgical and procedural history include left breast biopsy, 05/2019 (stereotactic core needle biopsy ); left breast biopsy, 2013 (surgical excisional biopsy ); and hysterectomy, 1996. COMPARISON STUDIES: Compared to: 11/27/2019 Mammography Breast Diagnostic Tomosynthesis Bilateral at [facility] 01/27/2021 Mammography Breast Diagnostic Tomosynthesis Bilateral at [facility] 01/28/2022 Mammography Breast Diagnostic Tomosynthesis Bilateral at [facility] 02/08/2023 Mammography Breast Screening Tomosynthesis Bilateral at [facility] BREAST COMPOSITION: The breasts are heterogeneously dense, which may obscure small masses. FINDINGS: There are post-biopsy clip(s) present in the left breast. There is no evidence of suspicious masses, calcifications, or other abnormal findings. Jose Dukes MD IMG BI PROCEDURES Final Re sult from Last 3 Months or Most Recently Relevant to Health Maintenance Insurance [employer] MED[employer]ARE Care Teams Drug Worker Relationship Specialty Start Date End Date Jose Dukes MD PCP - General Family Medicine 01/28/22
--- OUTSIDE RECORDS SUMMARY | 2025-01-29 12:28 | XMS_ITS | Clinical Summary ---
Author Organization [facility] Address [address] [place] [id number] Care Team Providers Care Drier Feeder Name Role Phone Nathalie Linares Primary Care Provider [phone] Allergies Active Allergy Reactions Criticality Noted Date Comments Erythromycin Hives Medium 07/06/2018 Medications losartan (COZAAR) 25 MG tablet Take 25 mg by mouth Daily. Active metoprolol succinate XL (TOPROL-XL) 25 MG 24 hr tablet Take 25 mg by mouth Daily. Active FLUoxetine (PROzac) 40 MG capsule Take 40 mg by mouth Daily. Active metFORMIN (GLUCOPHAGE) 500 MG tablet Take 500 mg by mouth Every Evening. Active hydrochlorothiaz [place] (HYDRODIURIL) 25 MG tablet Take 25 mg by mouth Daily. Active busPIRone (BUSPAR) 7.5 MG tablet Take 7.5 mg by mouth Daily. Active pravastatin (PRAVACHOL) 10 MG tablet Take 10 mg by mouth Every Night. Active LEVOTHYROXINE SODIUM PO Take by mouth Daily. Active Active Problems Problem Noted Date Diagnosed Date Abnormal stress test 07/03/2018 Overview (07/03/2018): Added automatically from request for surgery [id number] Social History Tobacco Use Types Packs/Day Years Used Date Smoking Tobacco: Never Smokeless Tobacco: Never Alcohol Use Standard Drinks/Week Comments No 0 (1 standard drink = 0.6 oz pur e alcohol) AUDIT-C Answer Date Recorded Frequency of Alcohol Consumption Never 07/06/2018 Average Number of Drinks Not on file 019 Frequency of Binge Drinking Not on file 08/2018 Abuse Screen Answer Date Recorded Unsafe at Home or Work/School Not on file Feels Threatened by Someone? Not on file 12/2022 Does Anyone Keep You from Co ntacting Others or Doint Things Outside the Home? Not on file 01/09/2023 Physical Sign of Abuse Present Not on file 1 Housing Stability Answer Date Recorded Current Living Arrangements Not on file 12/2022 Potentially Unsafe Housing Conditions Not on karl e 01/09/2023 Family and Community Support Answer Choco e Recorded Help with Day-to-Day Activities Not on file 01/09/2023 Lonely or Isolated Not on file 01/09/2023 Employment Answer Date Recorded Do you want help finding or keeping work or a elena b? Not on file 01/09/2023 Disabilities Answer Date Recorded Concentrating, Remembering, or Making Decisions Difficulty Not on file 01/09/2023 Doing Errands Independently Difficulty Not on fi le 01/09/2023 Education Answer Date Recorded Help with school or training? Not on file Preferred Language Not on file 01/09/2023 Comments Unknown Sex and Gender Information Value Date Recorded Sex Assigned at Not on file Legal Sex Female 10:53 AM EDT Gender Identity Not on file Sexual Orientation Not on file Last Filed Vital Signs Vital Sign Reading Time Taken Comments Blood Pressure 131/64 07/06/2018 3:22 PM EDT POST AMBULATION BP Pulse 51 07/06/2018 3:15 PM EDT Temperature 36.3 C (97.3 F) 07/06/2018 9:01 AM EDT Respiratory Rate 18 07/06/2018 11:5 5 AM EDT Oxygen Saturation 91% 07/06/2018 3:1 5 PM EDT Inhaled Oxygen Concentration - - Weight 87 kg (191 lb 12.8 oz) 07/06/2018 9:01 AM EDT Height 149.9 cm (4' 11 ) 07/06/2018 9:0 1 AM EDT Body Mass Index 38.74 07/06/2018 9:01 AM EDT Plan of Treatment Health Maintenance Due Date Last Done Comments DXA SCAN 1950 TDAP/TD VACCINES (1 - Tdap) 1969 MAMMOGRAM 1990 COLOGUARD 1995 COLON CANCER SCREENING 5 YEAR SIGMOIDOSCOPY 1995 COLONOSCOPY 1995 [address] CANCER SCREENING 1995 CT COLONOGRAPHY 1995 FECAL OCCULT BLOOD TEST 1995 FIT Testing (1 year) 1995 Pneumococcal Vaccine 50+ (1 of 1 - PCV) 2000 ZOSTER VACCINE (1 of 2) 2000 ANNUAL PHYSICAL 07/04/2018 HEPATITIS C SCREENING 07/04/2018 INFLUENZA VACCINE 11/01/2024 COVID-19 Vaccine (2023- season) 2024 Insurance MEDICARE A & B MEDICAID [place] Care Teams Drier Feeder Relationship Specialty Start Date End Date Nathalie Linares PA PCP - General Physician Restaurant Host/Hostess 07/06/18
[2025-01-29 12:47] LABS: Hematocrit 37.8 % (37.0-47.0); Hemoglobin 12.3 g/dL (12.2-16.2); Immature Granulocytes % 2.3 %; Mean Corpuscular HGB Conc 32.5 g/dL (31.8-35.4); Mean Corpuscular Hemoglobin 27.0 pg (27.0-31.2); Mean Corpuscular Volume 82.9 fl (81-99); Nucleated Red Blood Cells % 0 %; Platelet Count 202 K/mm3 (142-424); Red Blood Count 4.56 M/mm3 (4.20-5.40); Red Cell Distribution Width-SD 42.4 fL; White Blood Count 24.4 K/mm3 (4.8-10.8)
[2025-01-29 13:12] LABS: Anion Gap 11.2 mEq/L (5-15); Blood Urea Nitrogen 18 mg/dl (7-17); Calcium 9.2 mg/dl (8.4-10.2); Carbon Dioxide 24 mmol/L (22.0-30.0); Chloride 93 mmol/L (98-107); Creatinine,Serum 0.70 mg/dl (0.52-1.04); Estimated Glomerular Filt Rate 82 ml/min (>60); GFR (African American) 99 ML/MIN (>60); Glucose 244 mg/dl (74-100); Potassium 4.2 mmoL/L (3.5-5.1); Sodium 124 mmol/L (136-145)
[2025-01-29 13:18] LABS: RBC Morphology Normal; Total Cells Counted 100
[2025-01-29 23:09] LABS: Hemoglobin A1C 6.5 % (4.0-6.0)
== END 2025-01-29 23:59 | disposition home or self-care (01) ==
PROVIDERS: PCP Family Medicine; Visit Provider Family Medicine
DX: E87.1 Hypo-osmolality and hyponatremia (principal); D72.829 Elevated white blood cell count, unspecified; E11.9 Type 2 diabetes mellitus without complications
CPT/HCPCS: 36415; 80048; 83036; 85007; 85025

== ENCOUNTER 2025-01-29 22:17 | Inpatient (IN) | payer MEDICARE, MEDICAID, SELFPAY ==
[2025-01-29 22:35] VITALS: BP 139/62; PULSE 112; RESP 22; TEMP 37.2; O2SAT 96; BMI 38.7
--- NOTE | 2025-01-29 22:36 | XR_ITS ---
PROCEDURE INFORMATION: Exam: XR Chest Exam date and time: 01/29/2025 10:49 PM Age: 74 years old Clinical indication: Shortness of breath TECHNIQUE: Imaging protocol: Radiologic exam of the chest. Views: 1 view. COMPARISON: No relevant prior studies available. FINDINGS: Lungs: Pulmonary vasculature grossly normal. Consolidative alveolar opacity in the anterolateral right upper lobe concerning for consolidative pneumonia. Additional alveolar opacity in the right basilar distribution could represent basilar pneumonia or compressive atelectasis. Pleural spaces: Probable small right pleural effusion with lateral costophrenic angle blunting. No pneumothorax. Heart/Mediastinum: Heart size normal. No tracheal/mediastinal shift. Bones/joints: No acute osseous abnormalities are identified. IMPRESSION: 1. Right upper lobe consolidative airspace disease concerning for pneumonia. 2. Right basilar alveolar opacity could represent pneumonia or atelectasis. 3. Probable small right pleural effusion.
--- OUTSIDE RECORDS SUMMARY | 2025-01-29 22:38 | XMS_ITS | Clinical Summary ---
Author Organization [facility] Address [address] [place] [id number] Care Team Providers Care Practice Business Asst Name Role Phone Nathalie Linares Primary Care Provider [phone] Allergies Active Allergy Reactions Criticality Noted Date [...] (07/03/2018): Added automatically from request for surgery [id number] Social History Tobacco Use Types Packs/Day Years [...] A & B [place] Care Teams Practice Business Asst Relationship Specialty Start Date End Date Nathalie Linares PA PCP - General Physician [employer] 07/06/18
--- OUTSIDE RECORDS SUMMARY | 2025-01-29 22:38 | XMS_ITS | Clinical Summary ---
Author Organization [facility] Address [address] [place], [place] [id number] Care Team Providers Care Seismic Prospecting Supervisor Name Role Phone Jose Dukes MD Primary [...] (2 - Td or Tdap) 08/08/2022 08/08/2012 [id number] Vaccine (4 - season) 2024 04/14/2021, 06/25/2020, [...] 11/27/2019 Mammography Breast Diagnostic Tomosynthesis Bilateral at [facility] 01/27/2021 Mammography Breast Diagnostic Tomosynthesis Bilateral at [facility] 01/28/2022 Mammography Breast Diagnostic Tomosynthesis Bilateral at [facility] 02/08/2023 Mammography Breast Screening Tomosynthesis Bilateral at [facility] BREAST COMPOSITION: The breasts are heterogeneously dense, which may obscure small masses. FINDINGS: There are post-biopsy clip(s) present in the left breast. There is no evidence of suspicious masses, calcifications, or other abnormal findings. Jose Dukes MD IMG BI PROCEDURES Final Re sult from Last 3 Months or Most Recently Relevant to Health Maintenance Insurance [employer] MEDICARE Care Teams Seismic Prospecting Supervisor Relationship Specialty Start Date End Date Jose Dukes MD PCP - General Family Medicine 01/28/22
--- NOTE | 2025-01-29 22:42 | ECG_ITS ---
APPROVED REPORT Exam: Resting ECG HR:106 bpm ECG Measurements Heart Rate 106 AXES WI 143 P 35 QRSd 131 QRS 48 QT 343 T 41 QTc 405 Conclusion Sinus tachycardia without acute ST or T wave changes concerning for ischemia Electronically signed by : Mandy Denny, 01/30/2025 00:41:17
[2025-01-29 22:55] LABS: Alanine Aminotransferase 17 U/L (12-78); Albumin Level 3.0 g/dl (3.5-5.0); Albumin/Globulin Ratio 0.8 (1.1-1.8); Alkaline Phosphatase 110 U/L (38-126); Anion Gap 9.8 mEq/L (5-15); Aspartate Amino Transferase 23 U/L (14-36); Bilirubin,Total 1.8 mg/dl (0.2-1.3); Blood Urea Nitrogen 17 mg/dl (7-17); Calcium 8.7 mg/dl (8.4-10.2); Carbon Dioxide 24 mmol/L (22.0-30.0); Chloride 91 mmol/L (98-107); Creatinine Clearance Estimated 63 mL/min (50-200); Creatinine,Serum 0.70 mg/dl (0.52-1.04); Estimated Glomerular Filt Rate 82 ml/min (>60); GFR (African American) 99 ML/MIN (>60); Globulin 3.9 g/dL (1.3-3.2); Glucose 231 mg/dl (74-100); Magnesium 1.5 mg/dl (1.6-2.3); Potassium 3.8 mmoL/L (3.5-5.1); Sodium 121 mmol/L (136-145); Total Protein,Serum 6.9 g/dl (6.3-8.2)
[2025-01-29 22:57] LABS: Hematocrit 35.4 % (37.0-47.0); Hemoglobin 11.8 g/dL (12.2-16.2); Immature Granulocytes % 2.2 %; Mean Corpuscular HGB Conc 33.3 g/dL (31.8-35.4); Mean Corpuscular Hemoglobin 27.1 pg (27.0-31.2); Mean Corpuscular Volume 81.2 fl (81-99); Nucleated Red Blood Cells % 0 %; Platelet Count 205 K/mm3 (142-424); Red Blood Count 4.36 M/mm3 (4.20-5.40); Red Cell Distribution Width-SD 40.3 fL; White Blood Count 23.8 K/mm3 (4.8-10.8)
--- NOTE | 2025-01-29 22:57 | ED_ITS ---
Discharge Plan Disposition Chief Complaint: Shortness of Breath/Dyspnea Discharge ED Provider: Mandy Denny General Adult HPI General Chief complaint: Shortness of Breath/Dyspnea Stated complaint: Difficulty Breathing Time Seen by Provider: 01/29/25 22:48 Mode of Arrival: EMS Source of Information: Patient, Relative and EMS Description of Symptoms (Recalled from ER Triage Doc. by RN): Pt presents to ED via EMS for SOA X 3 days. Pt states she is struggling to get a deep breath and that her ribs/lungs hurt from coughing. Pt went to PCP on Monday and tested neg for Covid/flu. Pt is A&O*4 and family is bedside. Pt states no pain at this time. History of Present Illness HPI narrative: Patient is a 74-year-old female with no significant past medical history who presents to the emergency department with shortness of breath since Monday. Patient states that she has been feeling short of breath since Monday has gotten significantly worse today. Patient states that she has had a recent COVID flu test that was negative. Patient states that she has been coughing but has not had a productive cough. Patient has not had any fevers at home. Patient denies any vomiting or chest pain. Patient denies any abdominal pain or diarrhea. Patient denies any recent sick contacts. Patient denies any cardiac history. Patient denies any history of COPD. Patient does not smoke. Patient denies any recent travel. Patient denies any history of blood thinners. Denies any history of blood clots. Related Data Home Medications ?Medication ?Instructions ?Recorded ?Confirmed cholecalciferol (vitamin D3) 125 125 mcg PO DAILY 08/2201/28/25 mcg (5,000 unit) capsule Previous Rx's ?Medication ?Instructions ?Recorded aspirin 81 mg tablet,delayed 81 mg PO DAILY #90 tabs 0 06/12/23 release nystatin 100,000 unit/gram topical 1 applic topical BI D #30 grams 06/12/23 cream escitalopram oxalate 10 mg tablet 10 mg PO DAILY #90 t abs 10/01/24 (Lexapro) losartan 25 mg tablet 25 mg PO DAILY bp 90 days #9 0 tabs 10/21/24 metoprolol succinate 25 mg 25 mg PO DAILY bp 90 days # 90 tabs 10/21/24 tablet,extended release 24 hr pravastatin 40 mg tablet 40 mg PO DAILY HLD 90 days # 90 tabs 10/21/24 levothyroxine 100 mcg tablet 100 mcg PO DAILY thyroid 90 days 01/15/25 #90 tabs ondansetron 4 mg disintegrating 4 - 8 mg (1 - 2 x 4 mg ) PO BID PRN 01/28/25 tablet nausea and vomiting #20 tabs metformin 500 mg tablet,extended 500 mg PO DAILY #30 t abs 01/29/25 release 24 hr Allergies Allergy/AdvReac Type Severity Reaction Status Date / Time erythromycin base Allergy Intermediate I-HIVES Verified 01/28/25 09:27 (ERYTHROMYCIN BASE) KEROSENE HEATER FUMES Allergy Intermediate I-HIVES Uncoded 01/28/25 09:27 SHRIMP Allergy Intermediate I-HIVES Uncoded 01/28/25 09:27 [facility] Disclaimer: The information contained in this section may have been updated after the patient was seen, as this information can be updated by other users. Medical History Hypothyroidism Diabetes mellitus Cataract Thyroid disease Vitamin D deficiency Hyperlipidemia Hypertension Diabetes mellitus will lower metformin ER to 500 mg per day. check A1c today and then recheck in 4 months. Surgical History History of hysterectomy Hx of cardiac cath H/O tubal ligation Family History Mother Cancer Grandmother Coronary artery disease Grandfather Coronary artery disease Father Cancer Social History Smoking Status: Unknown if ever smoked second hand exposure: No alcohol intake: never substance use type: denies use current occupational status: retired Travel in the last 8 weeks?: None household members: family housing: house current occupational exposures/hazards: No caffeine: Yes Have you lived/traveled outside US in past 30 days?: No Contact w/someone who lives/traveled outside US past 30 days?: No Exposure to someone with infectious disease in past 14 days?: No Do you have a fever (greater than 100.4 F or 38 C)?: No Have you tested positive for COVID-19?: No Exposed to someone with COVID-19 in past 14 days?: No Do you have a sore throat?: No Do you have a cough?: No Do you have any weakness?: No Do you have any diarrhea?: No Are you experiencing any unusual bleeding?: No Do you have any muscle aches/pain?: No Do you have any abdominal pain?: No Are you experiencing loss of taste or smell?: No Other Medical History Have you received the Flu Vaccine for this season: Yes Have you received the Pneumonia Vaccine: Yes ROS Obtained: Yes All systems reviewed & no additional complaints except as documented and Yes Systems reviewed as appropriate & no additional complaints except as documented Physical Exam General General appearance: alert and in no apparent distress Head Head exam: atraumatic, normocephalic and normal inspection Eye Eye exam: Present normal appearance, PERRL and EOMI; Absent scleral icterus ENT ENT exam: Present normal exam and normal external ear exam Neck Neck exam: Present normal inspection and full ROM Chest Chest inspection: Present normal inspection and symmetric chest wall rise Respiratory Respiratory exam: Present normal lung sounds bilaterally and respiratory distress (mild tachypnea); Absent wheezes Cardiovascular Cardiovascular exam: Present normal rhythm, tachycardia and normal heart sounds Abdominal Exam Abdominal exam: Present soft and distention; Absent tenderness, guarding or rebound Extremities Exam Extremities exam: Present normal inspection and full ROM Back Exam Back exam: Present normal inspection and full ROM Neurological Exam Neurological exam: Present alert and oriented X3 Psychiatric Psychiatric exam: Present normal affect and normal mood Skin Skin exam: Present warm and dry Medical Decision Making Medical Records Medical records reviewed: Yes I reviewed the patient's medical records. Screening: Per USPSTF and CDC recommendations, given the prevalence of disease in our region, it is our hospital?s policy to screen for HIV and viral Hepatitis for all patients aged 18 and over and those with ongoing risk factors. Diomedes Inquiry Pt receiving controlled substance: No Vital Signs: 01/29/25 22:35 01/29/25 23:27 01/29/25 23:30 Temperature 99.0 F Temperature Source Oral Pulse Rate 102 H 103 H Pulse Rate [Left] 112 H Respiratory Rate 22 27 H 27 H Blood Pressure 154/65 H 166/68 H Blood Pressure [Right Arm] 139/62 Blood Pressure Mean [Right Arm] 87 02 Sat by Pulse Oximetry 96 92 L 95 Oxygen Delivery Method Nasal Cannula Nasal Cannula Nasal Cannula Oxygen Flow Rate (LPM) 4 2 2 Lab Data Lab results reviewed: Yes I reviewed the patient's lab results. Lab Results 01/29/25 22:32: D-Dimer 1.55 H 01/29/25 22:35: WBC 23.8 H*, RBC 4.36, Hgb 11.8 L, Hct 35.4 L, MCV 81.2, MCH 27.1, MCHC 33.3, RDW 13.5, Plt Count 205, MPV 10.8 H, Neut % (Auto) 86.9 H, L ymph % (Auto) 4.4 L, Crook % (Auto) 6.3, Eos % (Auto) 0.0 L, Baso % (Auto) 0.2, N eut # (Auto) 20.6 H, Lymph # (Auto) 1.1, Crook # (Auto) 1.5 H, Eos # (Auto) 0.0, Baso # (Auto) 0.1, Sodium 121 L, Potassium 3.8, Chloride 91 L, Carbon Dioxide 24, Anion Gap 9.8, BUN 17, Creatinine 0.70, Estimated Creat Clear 63, Estimated GFR 82, Est GFR ( Amer) 99, Glucose 231 H, Calcium 8.7, Magnesium 1.5 L, Total Bilirubin 1.8 H, AST 23, ALT 17, Alkaline Phosphatase 110, Troponin I < 0.01, Total Protein 6.9, Albumin 3.0 L, Globulin 3.9 H, Albumin/Globulin Ratio 0.8 L, Lipase 31, HIV Ag/Ab Combo Qual Negative 01/29/25 22:35 01/29/25 22:35 Orders (Tests/Meds): ED MEDICATIONS Generic Name Dose Route Start Last Admin Trade Name Freq PRN Reason Stop Dose Admin Ceftriaxone Sodium 2 gm/ 100 mls @ 200 mls/hr 01/29/25 23:00 Sodium Chloride IV 02/08/25 22:59 Q24H KATE Magnesium Sulfate 2 gm in 50 mls @ 50 mls/hr 01/29/25 23:29 Magnesium Sulfate 2gm/50ml Premix IV 01/30/25 00:28 ONCE ONE Discontinued Medications Generic Name Dose Route Start Last Admin Trade Name Freq PRN Reason Stop Dose Admin Albuterol/Ipratropium 6 ml 01/29/25 22:40 01/29/25 23:05 Ipratropium/Albuterol 3 Ml Neb 01/29/25 22:41 6 ml ONCE ONE Administration Lactated Ringer's 1,000 mls @ 999 mls/hr 01/29/25 22:40 01/29/25 23:04 Lactated Ringer's 1000 Ml Bag IV 01/29/25 23:40 999 mls/hr .Q1H1M ONE Administration Doxycycline Hyclate 100 mg/ 250 mls @ 166.667 mls/hr 01/29/25 23:01 01/29/25 23:21 Sodium Chloride IV 01/29/25 23:02 166.67 mls/hr ONCE ONE Administration ORDERS Category Date Time Status CXR --portable [XR chest portable] Stat Exams 01/29/25 22:36 Completed BNP [NT Pro Brain Natriuretic Pep.] Stat Lab 01/29/25 22:32 Received CBC w/Auto Diff [Complete Blood Count Auto Diff] Stat Lab 01/29/25 22:35 Results CMP [Comprehensive Metabolic Panel] Stat Lab 01/29/25 22:35 Completed CRP [C-Reactive Protein] Stat Lab 01/29/25 22:32 Received D-Dimer Stat Lab 01/29/25 22:32 Completed Full Resp Panel w/COVID (H) Routine Lab 01/29/25 23:05 Received HIV Combo Stat Lab 01/29/25 22:35 Completed Hepatitis C Ab Qual. W/ RFX Stat Lab 01/29/25 22:35 Received Lipase Stat Lab 01/29/25 22:35 Completed MAG [Magnesium] Stat Lab 01/29/25 22:35 Completed Procalcitonin Stat Lab 01/29/25 22:32 Received Trop I [Troponin I] Stat Lab 01/29/25 22:35 Completed Troponin I Q3H Lab 01/30/25 01:45 Ordered Troponin I Q3H Lab 01/30/25 04:45 Ordered Blood Culture Stat Micro 01/29/25 23:10 Received Medical Decision Narrative: Patient is a 74-year-old female with no significant past medical history who presented to the emergency department with shortness of breath for 3 days. On arrival, patient was tachycardic but vital signs were otherwise unremarkable. Patient was afebrile. EMS, patient was hypoxic at home with an oxygen saturation of 88 to 89% on room air patient was placed on 4 L nasal cannula. Patient was given 1 DuoNeb and route. Differential includes but not limited to: ACS/LA, pneumonia, pleural effusion, pneumothorax, PE, viral syndrome, amongst others. Patient's labs were reviewed and interpreted by myself: CBC showed a leukocytosis of 23. Hemoglobin was stable at 11.8. D-dimer elevated at 1.55. Patient was significantly hyponatremic with a CMP of 121. Museum low at 1.5. CRP elevated at 299. Lipase normal. Chest x-ray was reviewed and interpreted by myself and showed significant focal consolidation in the right upper lobe. Patient was started on Rocephin and doxycycline for CAP coverage. Patient has not had any recent hospitalizations in the last 30 days low concern for Pseudomonas at this time. Given patient's elevated D-dimer, CT PE was ordered however lower concern given patient's likely send shortness of breath is due to patient's right upper lobe pneumonia. Given the patient was requiring 4 L nasal cannula which was a new oxygen requirement for the patient in the setting of right upper lobe pneumonia, I discussed the case with the hospitalist and patient was ultimately admitted to their service for further evaluation workup. Patient was given IV fluids and magnesium was replaced. Critical Care Critical Care Time Critical Care Time: No
[2025-01-29 22:58] LABS: Lipase 31 U/L (23-300)
[2025-01-29] MEDS: LACTATED RINGERS 1000ML 1,000 ML 999 ML IV (23:04)
[2025-01-29] MEDS: IPRATROPIUM/ALBUTEROL 3 ML NEB 6 ML IH (23:05)
[2025-01-29 23:08] LABS: Troponin I < 0.01 ng/ml (0.00-0.034)
[2025-01-29 23:19] LABS: Adenovirus,PCR Not Detected (NotDetected); Chlamydophila Pneumoniae, PCR Not Detected (NotDetected); Coronavirus 19, PCR Not Detected (NotDetected); Coronovirus HKU1,PCR Not Detected (NotDetected); Influenza A, PCR Not Detected (NotDetected); Influenza AH1, 2009 Not Detected (NotDetected); Influenza AH1, PCR Not Detected (NotDetected); Influenza AH3,PCR Not Detected (NotDetected); Influenza B, PCR Not Detected (NotDetected); Mycoplasma Pneumoniae, PCR Not Detected (NotDetected); Parainfluenza 1, PCR Not Detected (NotDetected); Parainfluenza 2, PCR Not Detected (NotDetected); Parainfluenza 3, PCR Not Detected (NotDetected); Parainfluenza 4, PCR Not Detected (NotDetected)
[2025-01-29] MEDS: DOXYCYCLINE HYCLATE 100 MG in 0.9 % SODIUM CHLORIDE 250 ML 166.67 MG IV (23:21)
[2025-01-29 23:27] VITALS: BP 154/65; PULSE 102; RESP 27; O2SAT 92
[2025-01-29 23:30] VITALS: BP 166/68; PULSE 103; RESP 27; O2SAT 95
[2025-01-29 23:39] LABS: D-Dimer 1.55 ug/mL (0.0-0.5)
--- NOTE | 2025-01-29 23:43 | CT_ITS ---
PROCEDURE INFORMATION: Exam: CTA Chest With Contrast Exam date and time: 01/29/2025 11:59 PM Age: 74 years old Clinical indication: Other: Elevated d-dimer TECHNIQUE: Imaging protocol: Computed tomographic angiography of the chest with contrast. Exam focused on the arteries. 3D rendering (Not supervised by radiologist): MIP and/or 3D reconstructed images were created by the technologist. Radiation optimization: All CT scans at this facility use at least one of these dose optimization techniques: automated exposure control; mA and/or kV adjustment per patient size (includes targeted exams where dose is matched to clinical indication); or iterative reconstruction. Contrast material: ISOVUE; Contrast volume: 70 ml; Contrast route: INTRAVENOUS (IV); COMPARISON: CR XR CHEST PORTABLE 01/29/2025 10:49 PM FINDINGS: Pulmonary arteries: No pulmonary emboli are identified. Small branch assessment moderately limited at a few levels due to respiratory motion. Aorta: No aortic aneurysm or dissection. No mediastinal hematoma. Thyroid: The thyroid gland is moderately atrophic. Correlate clinically for evidence of hypothyroidism. Lungs: Slight interlobular septal thickening bilaterally, possibly a mild element of interstitial pulmonary edema. Consolidative airspace disease in the peripheral right upper lobe, and anterolateral right lower lobe basilar distribution concerning for multifocal pneumonia. No cavitation. If there is no clinical evidence of pneumonia, invasive mucinous adenocarcinoma (bronchioloalveolar cell carcinoma) would be another consideration for multifocal consolidation, consider short-term imaging follow-up to confirm regression with treatment as clinically indicated. Pleural spaces: Small right pleural effusion. No pneumothorax. Heart: Heart size upper limits of normal. No pericardial effusion. Coronary arteries: No coronary artery calcification. Esophagus: The esophagus is largely contracted but demonstrates no gross abnormality. Lymph nodes: No supraclavicular or axillary adenopathy. Mildly enlarged mediastinal nodes in the pretracheal retrocaval, precarinal, subcarinal distributions. Mildly enlarged right hilar nodes. Stomach: Visualized upper abdominal structures are unremarkable. Bones/joints: No acute osseous abnormalities. Osteopenia. Mild-moderate thoracic spondylosis. Soft tissues: No acute soft tissue abnormalities. IMPRESSION: 1. No pulmonary emboli are identified. Small branch assessment moderately limited at a few levels due to respiratory motion. 2. Multifocal consolidative airspace disease in the lateral right upper lobe and anterolateral right lower lobe. Multifocal pneumonia is favored, although consider invasive mucinous adenocarcinoma if there is no clinical evidence of pneumonia. 3. Enlarged right hilar and mediastinal nodes. 4. Small right pleural effusion.
[2025-01-29 23:44] LABS: C-Reactive Protein 299.2 mg/L (0-4)
[2025-01-29 23:48] LABS: Hepatitis C Ab Qual. W/ RFX NEGATIVE (Negative)
[2025-01-29 23:50] LABS: NT Pro Brain Natriuretic Pep. 739 pg/mL (0-125)
[2025-01-29 23:56] LABS: Procalcitonin 2.13 ng/mL (0.0-2.0)
[2025-01-29 23:58] LABS: Total Cells Counted 100
[2025-01-29 23:59] LABS: RBC Morphology Normal
[2025-01-30] VITALS (16 sets, daily range): BP systolic 118–166; BP diastolic 47–85; PULSE 72–106; RESP 12–24; TEMP 36.6–37.4; O2SAT 90–98; BMI 41.1; BMI 41.6
--- NOTE | 2025-01-30 00:06 | PC.NURSE ---
Report given to DADA Sutherland on the floor.
[2025-01-30] MEDS: SODIUM CHLORIDE 0.9% 10ML SYR (RAD ONLY) 10 ML IV (00:07)
[2025-01-30] MEDS: IOPAMIDOL-370 (76%);100ML BOTTLE 70 ML IV (00:07)
[2025-01-30] MEDS: 0.9 % SODIUM CHLORIDE 50 ML VIAL IV (00:07)
[2025-01-30] MEDS: IPRATROPIUM/ALBUTEROL 3 ML NEB IH ×5 (00:20→23:25)
--- NOTE | 2025-01-30 00:41 | P.HP_ITS ---
<Statement entered by Hollis Martinez MD - 02/02/25 15:39> Agree with plan of care as outlined by the HOUSE WORKER. History of Present Illness *Admission Date: 01/29/25 *Reason for visit:: shortness of breath *History of present illness: Patient is a 74-year-old female with a past medical history significant for hypothyroidism, depression, hypertension, hyperlipidemia, vitamin D deficiency, cataract. She presents to [facility] secondary to shortness of breath and cough. States symptoms have been present for almost a week and have progressively become worse. Denies any known alleviating or aggravating factors. Reports cough is nonproductive. Reports that she feels as though she cannot get a deep breath. Reports uncontrolled cough with tenderness within ribs. Denies any known alleviating or aggravating factors. Due to progressive worsening symptoms patient opted to follow-up to the emergency department for further evaluation and treatment. Assessment of patient at bedside, mild acute distress, 2 L nasal cannula with adequate saturations, mildly tachypneic. Denies fever, chest pain chest pain, nausea, vomiting or contact with sick individuals. Initial ED workup included laboratory studies and imaging. Significant laboratory findings, WBC 23.8, D-dimer 1.55, sodium 121, glucose 231, magnesium 1.5, total bilirubin 1.5, CRP 299, BNP 739, Pro-Miki 2.13. CTA chest revealing multifocal pneumonia. [facility] Disclaimer: The information contained in this section may have been updated after the patient was seen, as this information can be updated by other users. Medical History Hypothyroidism Diabetes mellitus Cataract Thyroid disease Vitamin D deficiency Hyperlipidemia Hypertension Diabetes mellitus will lower metformin ER to 500 mg per day. check A1c today and then recheck in 4 months. Surgical History History of hysterectomy Hx of cardiac cath H/O tubal ligation Family History Mother Cancer Grandmother Coronary artery disease Grandfather Coronary artery disease Father Cancer Social History Smoking Status: Never smoker second hand exposure: No alcohol intake: never substance use type: denies use current occupational status: retired Travel in the last 8 weeks?: None household members: family housing: house current occupational exposures/hazards: No caffeine: Yes Have you lived/traveled outside [place] in past 30 days?: No Contact w/someone who lives/traveled outside US past 30 days?: No Exposure to someone with infectious disease in past 14 days?: No Do you have a fever (greater than 100.4 F or 38 C)?: No Have you tested positive for COVID-19?: No Exposed to someone with COVID-19 in past 14 days?: No Do you have a sore throat?: No Do you have a cough?: No Do you have any weakness?: No Do you have any diarrhea?: No Are you experiencing any unusual bleeding?: No Do you have any muscle aches/pain?: No Do you have any abdominal pain?: No Are you experiencing loss of taste or smell?: No Other Medical History Have you received the Flu Vaccine for this season: Yes Have you received the Pneumonia Vaccine: Yes Review of Systems Review of Systems Review of systems:: pertinent systems reviewed and negative unless documented below Constitutional Constitutional: Reports system reviewed and no additional complaints, except as documented Eyes Eyes: Reports system reviewed and no additional complaints, except as documented ENT Ears, Nose, Mouth, and Throat: Reports system reviewed and no additional complaints, except as documented *Cardiovascular Cardiovascular: Reports system reviewed and no additional complaints, except as documented, Reports dyspnea and Reports dyspnea on exertion *Respiratory Respiratory: Reports as per HPI, Reports chest congestion, Reports cough, Reports dyspnea and Reports dyspnea on exertion *Gastrointestinal Gastrointestinal: Reports as per HPI *Genitourinary Genitourinary: Reports system reviewed and no additional complaints, except as documented *Musculoskeletal Musculoskeletal: Reports as per HPI and Reports muscle cramps Integumentary/Breasts Skin/Breast: Reports system reviewed and no additional complaints, except as documented *Neurologic Neurologic: Reports system reviewed and no additional complaints, except as documented Psychiatric Psychiatric: Reports system reviewed and no additional complaints, except as documented Endocrine Endocrine: Reports system reviewed and no additional complaints, except as documented Hematologic/Lymphatic Hematologic/Lymphatic: Reports system reviewed and no additional complaints, except as documented Allergic/Immunologic Allergic/Immunologic: Reports system reviewed and no additional complaints, except as documented Meds Home Medications and Allergies Home Medications ?Medication ?Instructions ?Recorded ?Confirmed ?Type cholecalciferol (vitamin D3) 125 125 mcg PO DAILY 08/2201/30/25 History mcg (5,000 unit) capsule aspirin 81 mg tablet,delayed 81 mg PO DAILY #90 tabs 0 06/12/23 01/30/25 Rx release nystatin 100,000 unit/gram topical 1 applic topical BI D #30 grams 06/12/23 01/30/25 Rx cream escitalopram oxalate 10 mg tablet 10 mg PO DAILY #90 t abs 10/01/24 01/30/25 Rx (Lexapro) losartan 25 mg tablet 25 mg PO DAILY bp 90 days #9 0 tabs 10/21/24 01/30/25 Rx metoprolol succinate 25 mg 25 mg PO DAILY bp 90 days # 90 tabs 10/21/24 01/30/25 Rx tablet,extended release 24 hr pravastatin 40 mg tablet 40 mg PO DAILY HLD 90 days # 90 tabs 10/21/24 01/30/25 Rx levothyroxine 100 mcg tablet 100 mcg PO DAILY thyroid 90 days 01/15/25 01/30/25 Rx #90 tabs ondansetron 4 mg disintegrating 4 - 8 mg (1 - 2 x 4 mg ) PO BID PRN 01/28/25 01/30/25 Rx tablet nausea and vomiting #20 tabs New Prescriptions to Start Prescriptions: Allergies Allergy/AdvReac Type Severity Reaction Status Date / Time erythromycin base Allergy Intermediate I-HIVES Verified 01/28/25 09:27 (ERYTHROMYCIN BASE) KEROSENE HEATER FUMES Allergy Intermediate I-HIVES Uncoded 01/28/25 09:27 SHRIMP Allergy Intermediate I-HIVES Uncoded 01/28/25 09:27 Exam Data for Last 24 hours Vital signs and Labs for Last 24 Hours: Temp Pulse Resp BP Pulse Ox O2 Del Method O2 Flow Rate 99 F 105 H 24 166/68 H 96 Nasal Cannula 2 01/30/25 00:07 01/30/25 00:20 01/30/25 00:07 01/30/25 00:07 01/30/25 00:20 01/30/25 00:20 01/30/25 00:20 Laboratory Results - last 24 hr 01/29/25 22:32: D-Dimer 1.55 H, C-Reactive Protein 299.2 H, NT-Pro-B Natriuret Pep 739 H, Procalcitonin 2.13 H 01/29/25 22:35: WBC 23.8 H*, RBC 4.36, Hgb 11.8 L, Hct 35.4 L, MCV 81.2, MCH 27.1, MCHC 33.3, RDW 13.5, Plt Count 205, MPV 10.8 H, Neut % (Auto) 86.9 H, Lymph % (Auto) 4.4 L, [place] % (Auto) 6.3, Eos % (Auto) 0.0 L, Baso % (Auto) 0.2, Neut # (Auto) 20.6 H, Lymph # (Auto) 1.1, [place] # (Auto) 1.5 H, Eos # (Auto) 0.0, Baso # (Auto) 0.1, Total Counted 100, Neutrophils % (Manual) 82 H, Band Neutrophils % 1.0, Lymphocytes % (Manual) 12, Monocytes % (Manual) 5, Platelet E stimate Normal, RBC Morphology Normal, Sodium 121 L, Potassium 3.8, Chloride 91 L, Carbon Dioxide 24, Anion Gap 9.8, BUN 17, Creatinine 0.70, Estimated Creat Clear 63, Estimated GFR 82, Est GFR ( Amer) 99, Glucose 231 H, Calcium 8.7, Magnesium 1.5 L, Total Bilirubin 1.8 H, AST 23, ALT 17, Alkaline Phosphatase 110, Troponin I < 0.01, Total Protein 6.9, Albumin 3.0 L, Globulin 3.9 H, Albumin/Globulin Ratio 0.8 L, Lipase 31, HCV Ab YONG w/Rflx PCR Qn Negative, HIV Ag/Ab Combo Qual Negative I & O for Last 24 hours: Intake & Output 01/27/25 01/28/25 01/29/25 01/30/25 23:59 23:59 23:59 23:59 Intake Total 1000 / 1000 Balance 1000 / 1000 Weight 81.193 kg Constitutional Constitutional: mild distress *Routine HEENT Exam Head: Present normocephalic Eye: Present PERRL and normal accommodation ENT: Present mucous membranes moist *Routine Neck Exam Neck: Present supple and full ROM *Routine Respiratory Exam Respiratory: Present decreased breath sounds, rhonchi and diminished air movement *Routine Cardiovascular Exam Cardiovascular: Present Normal S1, Normal S2 and tachycardia *Routine Abdominal Exam Abdominal: Present soft and normoactive bowel sounds *Routine Rectal Exam Rectal:: deferred *Routine Genitalia Exam Genitalia:: deferred *Routine Skin Exam Skin: Present intact *Routine Neurological Exam Neurological: Present alert, oriented X3 and CN II-XII intact Routine Psychiatric Exam Psychiatric: Present normal affect Assessment and Plan *Assessment and plan (1) Multifocal pneumonia: Status: Acute Category: Medical Code(s): J18.8 - Other pneumonia, unspecified organism (2) Hyponatremia: Status: Acute Category: Medical Code(s): E87.1 - Hypo-osmolality and hyponatremia (3) Diabetes mellitus: Problem Comment: will lower metformin ER to 500 mg per day. check A1c today and then recheck in 4 months. Status: Acute Qualifiers: Diabetes mellitus vermin exterminator insulin use: without senior living use Diabetes mellitus type: type 2 Category: Medical Code(s): E11.9 - Type 2 diabetes mellitus without complications (4) Hypothyroidism: Status: Acute Qualifiers: Hypothyroidism type: unspecified Qualified Code(s): E03.9 - Hypothyroidism, unspecified Category: Medical Code(s): E03.9 - Hypothyroidism, unspecified (5) Hypertension: Status: Acute Qualifiers: Hypertension type: unspecified Qualified Code(s): I10 - Essential (p rimary) hypertension Category: Medical Code(s): I10 - Essential (primary) hypertension (6) Hyperlipidemia: Status: Acute Qualifiers: Familial hypercholesterolemia type: unspecified type Category: Medical Code(s): E78.5 - Hyperlipidemia, unspecified (7) Anxiety: Status: Acute Category: Medical Code(s): F41.9 - Anxiety disorder, unspecified Plan 1. Multifocal pneumonia: Imaging studies as noted above suggestive of multifocal pneumonia. Patient with progressive shortness of breath and cough. Patient was initiated on Rocephin and doxycycline for community-acquired pneumonia coverage. DuoNebs, Mucinex, resume IV antibiotic therapy. IS at bedside, encourage use. PCR obtained unremarkable. Patient placed on 4 L nasal cannula in the emergency department. Continue to monitor saturations, wean as needed to keep saturations greater than 92%. Currently on 1.5 L nasal cannula. 2. Hyponatremia: Sodium 121-per chart review steadily trending down from the 28th with a sodium level of 130. Multifocal pneumonia possible contributor to hyponatremic state. IV fluid normal saline, urine Osmo and urine sodium requested. Continue to monitor and trend labs. 3. Diabetes mellitus type 2: Hemoglobin A1c 6.6 noted to remain stable. Monitor by her PCP. Holding off medication for diabetes with note they will recheck hemoglobin A1c with her next visit. Glucose on arrival 231. While inpatient with acute illness will monitor blood glucose, ACHS- treat as needed per sliding scale. 4. Hyperlipidemia: Resume home statin therapy. 5. Hypothyroidism: Resume levothyroxine 100 mcg daily. TSH with morning labs. 6. Hypomagnesia: Magnesium 1.5 received 2 g magnesium sulfate while in the emergency department. Replace per protocol. 7. Anxiety: Controlled without acute issue. Resume home medication Lexapro. 8. DVT prophylaxis: Rebecca Comer personally discussed the management of this patient with the emergency department provider. Patient to be admitted for further treatment of notable multifactorial pneumonia, resume IV antibiotics, monitor electrolyte levels, oxygen saturation.
[2025-01-30] MEDS: 0.9 % SODIUM CHLORIDE 1000ML 1,000 ML 50 ML IV (01:00)
[2025-01-30] MEDS: MAGNESIUM SULFATE IN WATER 2 GM/50 ML PIGGYBACK IV (01:40)
[2025-01-30 02:14] LABS: Troponin I < 0.01 ng/ml (0.00-0.034)
[2025-01-30 06:32] LABS: Hematocrit 30.8 % (37.0-47.0); Immature Granulocytes % 1.4 %; Mean Corpuscular HGB Conc 33.8 g/dL (31.8-35.4); Mean Corpuscular Hemoglobin 27.6 pg (27.0-31.2); Mean Corpuscular Volume 81.7 fl (81-99); Nucleated Red Blood Cells % 0 %; Platelet Count 185 K/mm3 (142-424); Red Blood Count 3.77 M/mm3 (4.20-5.40); Red Cell Distribution Width-SD 40.9 fL; White Blood Count 21.0 K/mm3 (4.8-10.8)
[2025-01-30 06:35] LABS: Hemoglobin 10.4 g/dL (12.2-16.2)
[2025-01-30 06:56] LABS: Albumin Level 2.3 g/dl (3.5-5.0); Chloride 94 mmol/L (98-107); Potassium 3.4 mmoL/L (3.5-5.1); Sodium 122 mmol/L (136-145)
[2025-01-30 06:58] LABS: Blood Urea Nitrogen 13 mg/dl (7-17); Creatinine Clearance Estimated 26 mL/min (50-200); Creatinine,Serum 0.50 mg/dl (0.52-1.04); Estimated Glomerular Filt Rate 121 ml/min (>60); GFR (African American) 146 ML/MIN (>60)
[2025-01-30 06:59] LABS: Alanine Aminotransferase 12 U/L (12-78); Albumin/Globulin Ratio 0.7 (1.1-1.8); Alkaline Phosphatase 104 U/L (38-126); Anion Gap 5.4 mEq/L (5-15); Aspartate Amino Transferase 19 U/L (14-36); Bilirubin,Total 1.0 mg/dl (0.2-1.3); Calcium 8.0 mg/dl (8.4-10.2); Carbon Dioxide 26 mmol/L (22.0-30.0); Globulin 3.4 g/dL (1.3-3.2); Glucose 138 mg/dl (74-100); Total Protein,Serum 5.7 g/dl (6.3-8.2)
--- NOTE | 2025-01-30 08:46 | HMH.PHAINT1 ---
Pharmacy Intervention Comments: MEDICATION RECONCILIATION COMPLETED ON PATIENT USING EXTERNAL FILL HISTORY FROM PHARMACY. -JILLIAN PRYOR, TAMARAD
[2025-01-30 08:50] LABS: Troponin I < 0.01 ng/ml (0.00-0.034)
[2025-01-30] MEDS: guaiFENesin 600 MG TAB.ER.12H PO ×2 (08:51→20:21)
[2025-01-30] MEDS: POTASSIUM CHLORIDE 20MEQ TAB 40 MEQ PO ×2 (10:58→14:18)
[2025-01-30] MEDS: DOXYCYCLINE HYCLATE 100 MG in 0.9 % SODIUM CHLORIDE 250 ML 166.67 MG IV ×2 (11:05→23:00)
[2025-01-30 11:24] LABS: Microscopic, Urine URINE MICROSCOPIC (MICROSCOPIC)
[2025-01-30 11:35] LABS: POC Glucose,Bedside 224 gm/dL (70-110)
[2025-01-30] MEDS: humaLOG 100 UNITS/ML 10ML VIAL (SSI) SUBCUT ×2 (12:02→20:21)
[2025-01-30 12:09] LABS: Bilirubin,Urine Negative (Negative); Color,Urine YELLOW (Yellow); Glucose,Urine (UA) Negative (Negative); Ketones,Urine Negative (Negative); Leukocyte Esterase,Urine 2+ (Negative); PH,Urine 6.0 (5.0-8.5); Protein,Urine TRACE (Negative); Specific Gravity, Urine <= 1.005 (1.005-1.030); Urobilinogen,Urine 1.0 EU/dl (0.2)
[2025-01-30 12:18] LABS: Sodium,Urine Random 6.0 mmol/L (30-90)
[2025-01-30 12:26] LABS: Bacteria,Urine Trace /lpf
[2025-01-30 12:27] LABS: Amorphous Sediment,Urine Trace /lpf
[2025-01-30 12:35] LABS: C-Reactive Protein 272.7 mg/L (0-4)
[2025-01-30 12:48] LABS: Procalcitonin 2.23 ng/mL (0.0-2.0)
[2025-01-30] MEDS: SODIUM CHLORIDE 3 % 200 ML 50 ML IV (14:18)
--- OUTSIDE RECORDS SUMMARY | 2025-01-30 14:30 | XMS_ITS | Clinical Summary ---
Author Organization [facility] Address [address] [place] [id number] Care Team Providers Care Airport Duty Manager Name Role Phone Nathalie Linares Primary Care Provider [phone] Allergies Active Allergy Reactions Criticality Noted Date [...] (07/03/2018): Added automatically from request for surgery [id number] Social History Tobacco Use Types Packs/Day Years [...] A & B MEDICAID [place] Care Teams Airport Duty Manager Relationship Specialty Start Date End Date Nathalie Linares PA PCP - General Physician Cashier Gambling 07/06/18
--- OUTSIDE RECORDS SUMMARY | 2025-01-30 14:30 | XMS_ITS | Clinical Summary ---
Author Organization [facility] Address [address] [place], [place] [id number] Care Team Providers Care Upholstery Repairer Name Role Phone Jose Dukes MD Primary [...] (2 - Td or Tdap) 08/08/2022 08/08/2012 [id number] Vaccine (4 - season) 2024 04/14/2021, 06/25/2020, [...] 11/27/2019 Mammography Breast Diagnostic Tomosynthesis Bilateral at [facility] 01/27/2021 Mammography Breast Diagnostic Tomosynthesis Bilateral at [facility] 01/28/2022 Mammography Breast Diagnostic Tomosynthesis Bilateral at [facility] 02/08/2023 Mammography Breast Screening Tomosynthesis Bilateral at [facility] BREAST COMPOSITION: The breasts are heterogeneously dense, which may obscure small masses. FINDINGS: There are post-biopsy clip(s) present in the left breast. There is no evidence of suspicious masses, calcifications, or other abnormal findings. Jose Dukes MD IMG BI PROCEDURES Final Re sult from Last 3 Months or Most Recently Relevant to Health Maintenance Insurance [employer] Care Teams Upholstery Repairer Relationship Specialty Start Date End Date Jose Dukes MD PCP - General Family Medicine 01/28/22
--- NOTE | 2025-01-30 14:41 | P.PN_ITS ---
Subjective *Date: 01/30/25 *Time: 14:52 Interval history: Patient states she feels better today, breathing easier and slightly less nonproductive cough. Follow-up sputum induction/sputum culture, blood cultures. Continue broad-spectrum antibiotics. Exam Data for Last 24 hours Vital signs and Labs for Last 24 Hours: Temp Pulse Resp BP Pulse Ox O2 Del Method O2 Flow Rate 97.9 F 100 H 16 136/50 L 96 Nasal Cannula 1 01/30/25 12:00 01/30/25 12:09 01/30/25 12:00 01/30/25 12:00 01/30/25 12:00 01/30/25 11:28 01/30/25 11:28 Laboratory Results - last 24 hr 01/29/25 22:32: D-Dimer 1.55 H, C-Reactive Protein 299.2 H, NT-Pro-B Natriuret Pep 739 H, Procalcitonin 2.13 H 01/29/25 22:35: WBC 23.8 H*, RBC 4.36, Hgb 11.8 L, Hct 35.4 L, MCV 81.2, MCH 27.1, MCHC 33.3, RDW 13.5, Plt Count 205, MPV 10.8 H, Neut % (Auto) 86.9 H, Lymph % (Auto) 4.4 L, [place] % (Auto) 6.3, Eos % (Auto) 0.0 L, Baso % (Auto) 0.2, Neut # (Auto) 20.6 H, Lymph # (Auto) 1.1, [place] # (Auto) 1.5 H, Eos # (Auto) 0.0, Baso # (Auto) 0.1, Total Counted 100, Neutrophils % (Manual) 82 H, Band Neutrophils % 1.0, Lymphocytes % (Manual) 12, Monocytes % (Manual) 5, Platelet Estimate Normal, RBC Morphology Normal, Sodium 121 L, Potassium 3.8, Chloride 91 L, Carbon Dioxide 24, Anion Gap 9.8, BUN 17, Creatinine 0.70, Estimated Creat Clear 63, Estimated GFR 82, Est GFR ( Amer) 99, Glucose 231 H, Calcium 8.7, Magnesium 1.5 L, Total Bilirubin 1.8 H, AST 23, ALT 17, Alkaline Phosphatas e 110, Troponin I < 0.01, Total Protein 6.9, Albumin 3.0 L, Globulin 3.9 H, Albumin/Globulin Ratio 0.8 L, Lipase 31, HCV Ab YONG w/Rflx PCR Qn Negative, HIV Ag/Ab Combo Qual Negative 01/29/25 23:05: Chlamy pneumoniae PCR Not detected, Adenovirus (PCR) Not detected, B. pertussis DNA (PCR) Not detected, Coronavirus OC43 (PCR) Not detected, Coronavirus HKU1 (PCR) Not detected, Coronavirus 229E (PCR) Not detected, SARS-CoV-2 (PCR) Not detected, Coronavirus NL63 (PCR) Not detected, Human Metapneumovir PCR Not detected, Influenza A (H1) PCR Not detected, Influ A (H1N1/09) PCR Not detected, Influenza A (H3) PCR Not detected, Influenza Type A (PCR) Not detected, Influenza Type B (PCR) Not detected, M. pneumoniae (PCR) Not detected, Parainfluenza 1 (PCR) Not detected, Parainfluenza 2 (PCR) Not detected, Parainfluenza 3 (PCR) Not detected, Parainfluenza 4 (PCR) Not detected, RSV (PCR) Not detected, Entero/Rhino (PCR) Not detected 01/30/25 01:40: Troponin I < 0.01 01/30/25 06:12: WBC 21.0 H*, RBC 3.77 L, Hgb 10.4 L D, Hct 30.8 L, MCV 81.7, MCH 27.6, MCHC 33.8, RDW 13.8, Plt Count 185, MPV 10.6 H, Neut % (Auto) 83.9 H, Lymph % (Auto) 6.7 L, [place] % (Auto) 7.6, Eos % (Auto) 0.2, Baso % (Auto) 0.2, Neut # (Auto) 17.7 H, Lymph # (Auto) 1.4, [place] # (Auto) 1.6 H, Eos # (Auto) 0.0, Baso # (Auto) 0.1, Sodium 122 L, Potassium 3.4 L, Chloride 94 L, Carbon Dioxide 26, Anion Gap 5.4, BUN 13, Creatinine 0.50 L D, Estimated Creat Clear 26, Estimated GFR 121, Est GFR ( Amer) 146 D, Glucose 138 H D, Calcium 8.0 L , Total Bilirubin 1.0, AST 19, ALT 12 D, Alkaline Phosphatase 104, Troponin I < 0.01, C-Reactive Protein 272.7 H, Total Protein 5.7 L, Albumin 2.3 L D, Globulin 3.4 H, Albumin/Globulin Ratio 0.7 L, Procalcitonin 2.23 H 01/30/25 11:08: POC Glucose 224 H 01/30/25 11:14: Urine Color Yellow, Urine Appearance Clear, Urine pH 6.0, Ur Specific [place] <= 1.005, Urine Protein Trace, Urine Glucose (UA) Negative, Urine Ketones Negative, Urine Blood 2+ A, Urine Nitrate Negative, Urine Bilirubin Negative, Urine Urobilinogen 1.0, Ur Leukocyte Esterase 2+ A, Urine RBC 5-10, Urine WBC 5-10, Ur Squamous Epith Cells 5-10, Amorphous Sediment Trace, Urine Bacteria Trace, Urine Sodium 6.0 L I & O for Last 24 hours: Intake & Output 01/27/25 01/28/25 01/29/25 01/30/25 23:59 23:59 23:59 23:59 Intake Total 2689.167 / 2689.167 Balance 2689.167 / 2689.167 Weight 81.193 kg 84.051 kg Constitutional Constitutional: no acute distress *Routine HEENT Exam Head: Present normocephalic Eye: Present EOMI and PERRL ENT: Present mucous membranes moist *Routine Neck Exam Neck: Present supple; Absent lymphadenopathy *Routine Respiratory Exam Respiratory: Present crackles; Absent CTA bilaterally *Routine Cardiovascular Exam Cardiovascular: Present RRR *Routine Abdominal Exam Abdominal: Present soft and normoactive bowel sounds; Absent tenderness *Routine Extremities Exam Extremities: Absent cyanosis, clubbing or edema *Routine Skin Exam Skin: Present warm; Absent rash *Routine Neurological Exam Neurological: Present alert and oriented X3 Assessment and Plan *Assessment and plan (1) Hyponatremia: Status: Acute Category: Medical Code(s): E87.1 - Hypo-osmolality and hyponatremia (2) Multifocal pneumonia: Status: Acute Category: Medical Code(s): J18.8 - Other pneumonia, unspecified organism Plan Shilpa Davies is a 74-year-old female who presented with shortness of breath, cough and was admitted for sepsis secondary to multifocal pneumonia. #Sepsis #Right upper and lower lobe community-acquired pneumonia ? Presented with shortness of breath, nonproductive cough. CTA chest revealing right upper and lower lobe pneumonia. Respiratory panel negative. ? Initial WBC 23, with tachycardia and tachypnea. WBC improved to 21 today, CRP down to 272, procalcitonin up to 2.23. Still tachycardic. ? Patient states she feels better today, improved breathing and slightly less cough. Still not making sputum. ? Switched to IV cefepime 2 g twice daily, continue doxycycline 100 mg twice daily. ? Follow-up sputum, blood cultures, MRSA PCR. ? Pulmonology consulted, pending further recommendations. ? Follow-up morning CBC, procalcitonin, CRP. #Hyponatremia #Suspected SIADH ? Initial sodium 130, down to 122 today. In the setting of extensive pneumonia. Suspect SIADH. ? Ordered hypertonic saline 50 mL/h for 4 hours, follow-up repeat BMP. No signs of volume depletion. ? Follow-up urine, serum osmolalities and urine sodium. #Type 2 diabetes ? Hemoglobin A1c 6.5% on admission. ? LDSSI, ACHS glucose checks. Hold home metformin. #Hypothyroidism ? Continue home levothyroxine 100 mcg, follow-up TFTs. #Hypertension ? Hold home losartan in setting of sepsis, continue home metoprolol. #Anxiety/depression ? Continue home escitalopram 10 mg. Full code DVT prophylaxis: Lovenox 30 mg
[2025-01-30] MEDS: CEFEPIME HCL 2 GM in 0.9 % SODIUM CHLORIDE 100 ML IV ×2 (14:58→22:02)
[2025-01-30 16:15] LABS: POC Glucose,Bedside 131 gm/dL (70-110)
--- NOTE | 2025-01-30 18:25 | PC.NURSE ---
patient is a/ox4, remains on 2 LNC with O2 sats above 90%, ambulates to bathroom via stand by assist. hypertonic saline infusing at 50 mls/hr. no c/o of SOB or dizziness with exertion. call light within reach, family at bedside. no further requests at this time.
[2025-01-30 20:31] LABS: POC Glucose,Bedside 175 gm/dL (70-110)
[2025-01-31] VITALS (7 sets, daily range): BP systolic 136–173; BP diastolic 53–80; PULSE 70–103; RESP 12–17; TEMP 36.5–37.4; O2SAT 90–97; BMI 41.6
[2025-01-31 04:37] LABS: MRSA DNA PCR Negative (Negative)
--- NOTE | 2025-01-31 05:13 | PC.NURSE ---
Pt is A&OX4. Pt has remained on 1-2L nasal cannula throughout the shift. She has ambulated with standby assist. Receiving IV abx. Family has remained at bedside. No complaints at this time, call light within reach.
[2025-01-31] MEDS: LEVOTHYROXINE 100MCG (0.1MG) TAB 100 MCG PO (06:02)
[2025-01-31] MEDS: IPRATROPIUM/ALBUTEROL 3 ML NEB IH ×2 (06:08→11:26)
[2025-01-31 06:11] LABS: POC Glucose,Bedside 134 gm/dL (70-110)
[2025-01-31 06:20] LABS: Hematocrit 30.8 % (37.0-47.0); Hemoglobin 9.9 g/dL (12.2-16.2); Immature Granulocytes % 1.6 %; Mean Corpuscular HGB Conc 32.1 g/dL (31.8-35.4); Mean Corpuscular Hemoglobin 26.8 pg (27.0-31.2); Mean Corpuscular Volume 83.5 fl (81-99); Nucleated Red Blood Cells % 0 %; Platelet Count 196 K/mm3 (142-424); Red Blood Count 3.69 M/mm3 (4.20-5.40); Red Cell Distribution Width-SD 43.2 fL; White Blood Count 13.7 K/mm3 (4.8-10.8)
--- NOTE | 2025-01-31 06:30 | XR_ITS ---
FINAL REPORT CLINICAL HISTORY: Follow-up pneumonia COMPARISON: 01/29/2025 FINDINGS: The heart size is normal. The mediastinum is normal. The dense lateral right upper lobe infiltrate noted on the prior exam of 01/29/2025 remains present and is not significantly changed. There is some atelectasis present in the right lung base. There is no pneumothorax. There is no osseous abnormality. IMPRESSION: No significant change in the right upper lobe infiltrate and the mild atelectasis in the right lung base since the prior exam of 01/29/2025. Reviewed, Interpreted and Dictated by Garth Canales MD Transcribed by Roma Boyer Authenticated and . [facility]
[2025-01-31 06:32] LABS: Albumin Level 3.1 g/dl (3.5-5.0); Chloride 103 mmol/L (98-107); Potassium 4.1 mmoL/L (3.5-5.1); Sodium 128 mmol/L (136-145)
[2025-01-31 06:35] LABS: Alanine Aminotransferase 12 U/L (12-78); Albumin/Globulin Ratio 1.3 (1.1-1.8); Alkaline Phosphatase 102 U/L (38-126); Anion Gap 5.1 mEq/L (5-15); Aspartate Amino Transferase 26 U/L (14-36); Bilirubin,Total 1.0 mg/dl (0.2-1.3); Blood Urea Nitrogen 8 mg/dl (7-17); Carbon Dioxide 24 mmol/L (22.0-30.0); Creatinine Clearance Estimated 26 mL/min (50-200); Creatinine,Serum 0.50 mg/dl (0.52-1.04); Estimated Glomerular Filt Rate 121 ml/min (>60); GFR (African American) 146 ML/MIN (>60); Globulin 2.3 g/dL (1.3-3.2); Total Protein,Serum 5.4 g/dl (6.3-8.2)
[2025-01-31 06:36] LABS: Calcium 8.0 mg/dl (8.4-10.2); Glucose 131 mg/dl (74-100)
[2025-01-31 07:18] LABS: Free T4 (Free Thyroxine) 1.48 ng/dl (0.78-2.19)
[2025-01-31 07:32] LABS: Thyroid Stimulating Hormone 3.98 uIU/mL (0.465-4.68)
--- NOTE | 2025-01-31 08:02 | EXP.PULM.CON ---
History of Present Illness History of present illness: Ms. Davies is a 74-year-old female never smoker, no prior respiratory complaints no recent hospitalizations or antibiotic use in the last 6 months, reported medical history hypothyroidism hypertension dyslipidemia presented to the ER with worsening respiratory distress and has been progressively getting worse and pulmonary was called for further evaluation and management. [facility] Disclaimer: The information contained in this section may have been updated after the patient was seen, as this information can be updated by other users. Medical History Hypothyroidism Diabetes mellitus Cataract Thyroid disease Vitamin D deficiency Hyperlipidemia Hypertension Diabetes mellitus will lower metformin ER to 500 mg per day. check A1c today and then recheck in 4 months. Surgical History History of hysterectomy Hx of cardiac cath H/O tubal ligation Family History Mother Cancer Grandmother Coronary artery disease Grandfather Coronary artery disease Father Cancer Social History Smoking Status: Never smoker second hand exposure: No alcohol intake: never substance use type: denies use current occupational status: retired Travel in the last 8 weeks?: None household members: family housing: house current occupational exposures/hazards: No caffeine: Yes Have you lived/traveled outside US in past 30 days?: No Contact w/someone who lives/traveled outside US past 30 days?: No Exposure to someone with infectious disease in past 14 days?: No Do you have a fever (greater than 100.4 F or 38 C)?: No Have you tested positive for COVID-19?: No Exposed to someone with COVID-19 in past 14 days?: No Do you have a sore throat?: No Do you have a cough?: No Do you have any weakness?: No Do you have any diarrhea?: No Are you experiencing any unusual bleeding?: No Do you have any muscle aches/pain?: No Do you have any abdominal pain?: No Are you experiencing loss of taste or smell?: No Review of Systems Constitutional Constitutional: Reports anorexia, Reports body ache(s) and Reports fatigue Eyes Eyes: Denies eye discharge, Denies dry eyes, Denies irritation and Denies itchy eyes ENT Ears, Nose, Mouth, and Throat: Denies epistaxis, Denies facial pain, Denies lip swelling and Denies throat swelling *Cardiovascular Cardiovascular: Reports dyspnea and Reports dyspnea on exertion *Respiratory Respiratory: Reports change in phlegm color, Reports chest congestion, Reports cough, Reports dyspnea, Reports dyspnea on exertion, Reports excessive phlegm production, Denies hemoptysis, Denies pain on inspiration, Denies pain with cough and Denies wheezing *Gastrointestinal Gastrointestinal: Denies abdominal pain, Denies belching and Denies cramping *Musculoskeletal Musculoskeletal: Reports back pain, Reports myalgias and Reports other (No small joint swelling or Pain) *Neurologic Neurologic: Reports system reviewed and no additional complaints, except as documented Psychiatric Psychiatric: Denies homicidal ideation and Denies suicidal ideation Endocrine Endocrine: Reports fatigue and Denies heat intolerance Hematologic/Lymphatic Hematologic/Lymphatic: Denies easy bleeding and Denies lymphadenopathy Allergic/Immunologic Allergic/Immunologic: Denies itchy eyes, Denies lip swelling, Denies throat swelling and Denies wheezing Pulmonology Exam Inpatient Vital signs and Labs for Last 24 Hours: Temp Pulse Resp BP Pulse Ox O2 Del Method O2 Flow Rate 97.7 F 96 H 12 137/69 90 L Nasal Cannula 1 01/31/25 04:00 01/31/25 06:08 01/31/25 04:00 01/31/25 04:00 01/31/25 06:08 01/31/25 06:41 01/31/25 06:41 FiO2 2 01/30/25 20:00 Laboratory Results - last 24 hr 01/30/25 06:12: Troponin I < 0.01, C-Reactive Protein 272.7 H, Procalcitonin 2.23 H 01/30/25 11:08: POC Glucose 224 H 01/30/25 11:14: Urine Color Yellow, Urine Appearance Clear, Urine pH 6.0, Ur Specific [place] <= 1.005, Urine Protein Trace, Urine Glucose (UA) Negative, Urine Ketones Negative, Urine Blood 2+ A, Urine Nitrate Negative, Urine Bilirubin Negative, Urine Urobilinogen 1.0, Ur Leukocyte Esterase 2+ A, Urine RBC 5-10, Urine WBC 5-10, Ur Squamous Epith Cells 5-10, Amorphous Sediment Trace, Urine Bacteria Trace, Urine Sodium 6.0 L 01/30/25 14:25: MRSA (PCR) Negative 01/30/25 16:07: POC Glucose 131 H 01/30/25 20:20: POC Glucose 175 H 01/31/25 06:00: WBC 13.7 H D, RBC 3.69 L, Hgb 9.9 L, Hct 30.8 L, MCV 83.5, MCH 26.8 L, MCHC 32.1, RDW 14.2, Plt Count 196, MPV 10.3, Neut % (Auto) 78.8, Lymph % (Auto) 9.3 L, [place] % (Auto) 8.9, Eos % (Auto) 1.0, Baso % (Auto) 0.4, Neut # (Auto) 10.8 H, Lymph # (Auto) 1.3, [place] # (Auto) 1.2 H, Eos # (Auto) 0.1, Baso # (Auto) 0.1, Sodium 128 L, Potassium 4.1 D, Chloride 103, Carbon Dioxide 24, Anion Gap 5.1, BUN 8 D, Creatinine 0.50 L, Estimated Creat Clear 26, Estimated GFR 121, Est GFR ( Amer) 146, Glucose 131 H, POC Glucose 134 H, Calcium 8.0 L, Total Bilirubin 1.0, AST 26 D, ALT 12, Alkaline Phosphatase 102, Total Protein 5.4 L, Albumin 3.1 L D, Globulin 2.3, Albumin/Globulin Ratio 1.3, TSH 3.98, Free T4 1.48 I & O for Labs for Last 24 Hours: Intake & Output 01/28/25 01/29/25 01/30/25 01/31/25 23:59 23:59 23:59 23:59 Intake Total 3569.167 / 3819.167 500 / 500 Output Total 150 / 150 Balance 3419.167 / 3669.167 500 / 500 Weight 179 lb 185 lb 4.8 oz 185 lb 4.812 oz Microbiology Reports for the Last 24 Hours: Microbiology 01/29/25 23:10 Blood Blood Culture - Preliminary NO GROWTH AFTER 24 HOURS 01/29/25 23:10 Blood Blood Culture - Preliminary NO GROWTH AFTER 24 HOURS Constitutional: Present mild distress Head: Present normocephalic and atraumatic ENT: Present normal exam, normal oropharynx and mucous membranes moist Neck: Present normal inspection and full ROM Respiratory: Present rhonchi, diminished air movement, normal respiratory effort and able to speak in complete sentences; Absent prolonged expiratory phase, respiratory distress or wheezes Cardiac: Present S1/S2, Tachycardia and radial pulses present GI: Present soft and distention; Absent tenderness or guarding Rectal (female): Present deferred (female): Present deferred Skin: Present intact; Absent cyanosis or jaundice Neuro: Present alert, awake and oriented x 3 Extremities: Present normal inspection; Absent clubbing or cyanosis Psychiatric: Present normal affect and cooperative Meds Home Medications and Allergies Home Medications ?Medication ?Instructions ?Recorded ?Confirmed ?Type cholecalciferol (vitamin D3) 125 125 mcg PO DAILY 10/05/21 01/30/25 History mcg (5,000 unit) capsule aspirin 81 mg tablet,delayed 81 mg PO DAILY #90 tabs 06/12/23 01/30/25 Rx release escitalopram oxalate 10 mg tablet 10 mg PO DAILY #90 tabs 10/01/24 01/30/25 Rx (Lexapro) levothyroxine 100 mcg tablet 100 mcg PO DAILY 01/30/25 01/30/25 History losartan 25 mg tablet 25 mg PO DAILY 01/30/25 01/30/25 History metformin 500 mg tablet,extended 500 mg PO DAILY 01/30/25 01/30/25 History release 24 hr metoprolol succinate 25 mg 25 mg PO DAILY 01/30/25 01/30/25 History tablet,extended release 24 hr ondansetron 4 mg disintegrating 4 mg PO TIDP PRN nausea and 01/30/25 01/30/25 History tablet vomiting pravastatin 40 mg tablet 40 mg PO DAILY 01/30/25 01/30/25 History New Prescriptions to Start Prescriptions: Allergies Allergy/AdvReac Type Severity Reaction Status Date / Time shrimp Allergy Severe Hives Verified 01/30/25 08:20 erythromycin base Allergy Intermediate I-HIVES Verified 01/28/25 09:27 (ERYTHROMYCIN BASE) Results Laboratory Findings 01/31/25 06:00 01/31/25 06:00 PT/INR, D-dimer D-Dimer 1.55 ug/mL (0.0-0.5) H 01/29/25 22:32 Abnormal lab findings: Abnormal Labs 01/29/25 01/29/25 01/30/25 22:32 22:35 06:12 WBC 23.8 H* 21.0 H* RBC 3.77 L Hgb 11.8 L 10.4 L D Hct 35.4 L 30.8 L MCH MPV 10.8 H 10.6 H Neut % (Auto) 86.9 H 83.9 H Lymph % (Auto) 4.4 L 6.7 L Eos % (Auto) 0.0 L Neut # (Auto) 20.6 H 17.7 H [place] # (Auto) 1.5 H 1.6 H Neutrophils % (Manual) 82 H D-Dimer 1.55 H Sodium 121 L 122 L Potassium 3.4 L Chloride 91 L 94 L Creatinine 0.50 L D Glucose 231 H 138 H D POC Glucose Calcium 8.0 L Magnesium 1.5 L Total Bilirubin 1.8 H C-Reactive Protein 299.2 H 272.7 H NT-Pro-B Natriuret Pep 739 H Total Protein 5.7 L Albumin 3.0 L 2.3 L D Globulin 3.9 H 3.4 H Albumin/Globulin Ratio 0.8 L 0.7 L Procalcitonin 2.13 H 2.23 H Urine Blood Ur Leukocyte Esterase Urine Sodium 01/30/25 01/30/25 01/30/25 11:08 11:14 16:07 WBC RBC Hgb Hct MCH MPV Neut % (Auto) Lymph % (Auto) Eos % (Auto) Neut # (Auto) [place] # (Auto) Neutrophils % (Manual) D-Dimer Sodium Potassium Chloride Creatinine Glucose POC Glucose 224 H 131 H Calcium Magnesium Total Bilirubin C-Reactive Protein NT-Pro-B Natriuret Pep Total Protein Albumin Globulin Albumin/Globulin Ratio Procalcitonin Urine Blood 2+ A Ur Leukocyte Esterase 2+ A Urine Sodium 6.0 L 01/30/25 01/31/25 20:20 06:00 WBC 13.7 H D RBC 3.69 L Hgb 9.9 L Hct 30.8 L MCH 26.8 L MPV Neut % (Auto) Lymph % (Auto) 9.3 L Eos % (Auto) Neut # (Auto) 10.8 H [place] # (Auto) 1.2 H Neutrophils % (Manual) D-Dimer Sodium 128 L Potassium Chloride Creatinine 0.50 L Glucose 131 H POC Glucose 175 H 134 H Calcium 8.0 L Magnesium Total Bilirubin C-Reactive Protein NT-Pro-B Natriuret Pep Total Protein 5.4 L Albumin 3.1 L D Globulin Albumin/Globulin Ratio Procalcitonin Urine Blood Ur Leukocyte Esterase Urine Sodium Assessment and Plan *Assessment and plan (1) Multifocal pneumonia: Status: Acute Category: Medical Code(s): J18.8 - Other pneumonia, unspecified organism Plan Ms. Davies is a 74-year-old female never smoker, no prior respiratory complaints no recent hospitalizations or antibiotic use in the last 6 months, reported medical history hypothyroidism hypertension dyslipidemia presented to the ER with worsening respiratory distress and has been progressively getting worse and pulmonary was called for further evaluation and management. Afebrile. Hemodynamically stable. Neutrophilic predominant leukocytosis improving. Comprehensive respiratory viral PCR panel negative. CTA PE protocol upon admission no significant pulmonary embolism though limited by motion artifact. Predominant right upper lobe along with lower lobe consolidative changes peripherally. Mediastinal hilar lymphadenopathy noted can well be reactive, will follow. Nasal MRS PCR Negative Currently receiving cefepime and doxycycline. Chest x-ray from this morning reviewed, no acute changes from admission. More dense right lower lobe infiltrate. Right upper lobe remained relatively stable. On examination no respiratory distress. On room air. Plan: Antibiotics can be weaned to levofloxacin to complete a total of 7-day course pending negative blood cultures Urine strep Legionella antigens Sputum induction today DuoNebs 4 times daily as needed
[2025-01-31] MEDS: METOPROLOL SUCCINATE XL 25MG TABLET 25 MG PO (08:10)
[2025-01-31] MEDS: guaiFENesin 600 MG TAB.ER.12H PO (08:10)
[2025-01-31] MEDS: ESCITALOPRAM 10MG TABLET 10 MG PO (08:10)
[2025-01-31] MEDS: ASPIRIN EC 81MG TABLET 81 MG PO (08:10)
[2025-01-31 10:09] LABS: C-Reactive Protein 222.6 mg/L (0-4)
[2025-01-31 10:21] LABS: Procalcitonin 1.35 ng/mL (0.0-2.0)
[2025-01-31] MEDS: SODIUM CHLORIDE 3% 15ML NEB 3 ML IH (11:26)
[2025-01-31] MEDS: humaLOG 100 UNITS/ML 10ML VIAL (SSI) SUBCUT (11:33)
[2025-01-31] MEDS: CEFEPIME HCL 2 GM in 0.9 % SODIUM CHLORIDE 100 ML IV (11:34)
[2025-01-31] MEDS: DOXYCYCLINE HYCLATE 100 MG in 0.9 % SODIUM CHLORIDE 250 ML 200 MG IV (13:30)
--- NOTE | 2025-01-31 15:10 | P.DS_ITS ---
General Admission date:: 01/29/25 HPI HPI HPI: Patient is a 74-year-old female with a past medical history significant for hypothyroidism, depression, hypertension, hyperlipidemia, vitamin D deficiency, cataract. She presents to [facility] secondary to shortness of breath and cough. States symptoms have been present for almost a week and have progressively become worse. Denies any known alleviating or aggravating f actors. Reports cough is nonproductive. Reports that she feels as though she cannot get a deep breath. Reports uncontrolled cough with tenderness within ribs. Denies any known alleviating or aggravating factors. Due to progressive worsening symptoms patient opted to follow-up to the emergency department for further evaluation and treatment. Assessment of patient at bedside, mild acute distress, 2 L nasal cannula with adequate saturations, mildly tachypneic. Denies fever, chest pain chest pain, nausea, vomiting or contact with sick individuals. Initial ED workup included laboratory studies and imaging. Significant laboratory findings, WBC 23.8, D-dimer 1.55, sodium 121, glucose 231, magnesium 1.5, total bilirubin 1.5, CRP 299, BNP 739, Pro-Miki 2.13. CTA chest revealing multifocal pneumonia. Hospital Course Hospital Course Hospital Course: Shilpa Davies is a 74-year-old female who presented with shortness of breath, cough and was admitted for sepsis secondary to multifocal pneumonia. #Sepsis #Right upper and lower lobe community-acquired pneumonia ? Presented with shortness of breath, nonproductive cough. CTA chest revealing right upper and lower lobe pneumonia. Respiratory panel negative. ? Initial WBC 23, CRP 299, with tachycardia and tachypnea. WBC improved to 15.7 today, CRP down to 222.6, procalcitonin peaked 2.23, normalized. ? Clinically improved with IV cefepime, doxycycline. Patient feeling much better today, breathing easier and decreased cough. ? Patient unable to produce sputum, blood cultures NGTD. ? Discussed with pulmonology, recommended levofloxacin for total of 7 days. ? Discharged with levofloxacin 750 mg every 48 hours renally dosed for 6 more days. ? Will follow-up with pulmonology within 1 week. #Hyponatremia #Suspected SIADH ? Initial sodium 130, as low as 122 acutely in the setting of pneumonia. Suspect SIADH. ? Improved with hypertonic saline, currently 128. Patient feels better. ? Discharged with salt tabs 1000 mg twice daily for 3 more days. ? Will follow-up with PCP within 1 week for further evaluation. #Type 2 diabetes ? Hemoglobin A1c 6.5% on admission. Continue home metformin. #Hypothyroidism ? Continue home levothyroxine 100 mcg, TSH normal. #Hypertension ? Continue home losartan, metoprolol. #Anxiety/depression ? Continue home escitalopram 10 mg. Total time spent on discharge: 33 minutes on chart review, counseling, documentation, and direct care with patient. Exam Data for Last 24 hours Vital signs and Labs for Last 24 Hours: Temp Pulse Resp BP Pulse Ox O2 Del Method O2 Flow Rate 99.1 F 94 H 16 143/63 H 95 Nasal Cannula 1 01/31/25 12:00 01/31/25 12:00 01/31/25 12:00 01/31/25 12:00 01/31/25 12:00 01/31/25 13:00 01/31/25 13:00 FiO2 2 01/30/25 20:00 Laboratory Results - last 24 hr 01/30/25 14:25: MRSA (PCR) Negative 01/30/25 16:07: POC Glucose 131 H 01/30/25 20:20: POC Glucose 175 H 01/31/25 06:00: WBC 13.7 H D, RBC 3.69 L, Hgb 9.9 L, Hct 30.8 L, MCV 83.5, MCH 26.8 L, MCHC 32.1, RDW 14.2, Plt Count 196, MPV 10.3, Neut % (Auto) 78.8, Lymph % (Auto) 9.3 L, [place] % (Auto) 8.9, Eos % (Auto) 1.0, Baso % (Auto) 0.4, Neut # (Auto) 10.8 H, Lymph # (Auto) 1.3, [place] # (Auto) 1.2 H, Eos # (Auto) 0.1, Baso # (Auto) 0.1, Sodium 128 L, Potassium 4.1 D, Chloride 103, Carbon Dioxide 24, Anion Gap 5.1, BUN 8 D, Creatinine 0.50 L, Estimated Creat Clear 26, Estimated GFR 121, Est GFR ( Amer) 146, Glucose 131 H, POC Glucose 134 H, Calcium 8.0 L, Total Bilirubin 1.0, AST 26 D, ALT 12, Alkaline Phosphatase 102, C- Reactive Protein 222.6 H, Total Protein 5.4 L, Albumin 3.1 L D, Globulin 2.3, Albumin/Globulin Ratio 1.3, Procalcitonin 1.35, TSH 3.98, Free T4 1.48 I & O for Last 24 hours: Intake & Output 01/28/25 01/29/25 01/30/25 01/31/25 23:59 23:59 23:59 23:59 Intake Total 3569.167 / 3819.167 1450 / 1450 Output Total 150 / 150 2 / 2 Balance 3419.167 / 3669.167 1448 / 1448 Weight 81.193 kg 84.051 kg 84.051 kg Microbiology Reports for the Last 24 Hours: Microbiology 01/29/25 23:10 Blood Blood Culture - Preliminary NO GROWTH AFTER 24 HOURS 01/29/25 23:10 Blood Blood Culture - Preliminary NO GROWTH AFTER 24 HOURS Constitutional Constitutional: no acute distress *Routine HEENT Exam Head: Present normocephalic Eye: Present EOMI and PERRL ENT: Present mucous membranes moist *Routine Neck Exam Neck: Present supple; Absent lymphadenopathy *Routine Respiratory Exam Respiratory: Present crackles; Absent CTA bilaterally *Routine Cardiovascular Exam Cardiovascular: Present RRR *Routine Abdominal Exam Abdominal: Present soft and normoactive bowel sounds; Absent tenderness *Routine Extremities Exam Extremities: Absent cyanosis, clubbing or edema *Routine Skin Exam Skin: Present warm; Absent rash *Routine Neurological Exam Neurological: Present alert and oriented X3 Results Data Completed and Pending Labs on day of discharge: Labs from last 24 hours 01/31/25 01/30/25 01/30/25 06:00 20:20 16:07 WBC 13.7 H D RBC 3.69 L Hgb 9.9 L Hct 30.8 L MCV 83.5 MCH 26.8 L MCHC 32.1 RDW 14.2 Plt Count 196 MPV 10.3 Neut % (Auto) 78.8 Lymph % (Auto) 9.3 L [place] % (Auto) 8.9 Eos % (Auto) 1.0 Baso % (Auto) 0.4 Neut # (Auto) 10.8 H Lymph # (Auto) 1.3 [place] # (Auto) 1.2 H Eos # (Auto) 0.1 Baso # (Auto) 0.1 Sodium 128 L Potassium 4.1 D Chloride 103 Carbon Dioxide 24 Anion Gap 5.1 BUN 8 D Creatinine 0.50 L Estimated Creat Clear 26 Estimated GFR 121 Est GFR ( Amer) 146 Glucose 131 H POC Glucose 134 H 175 H 131 H Calcium 8.0 L Total Bilirubin 1.0 AST 26 D ALT 12 Alkaline Phosphatase 102 C-Reactive Protein 222.6 H Total Protein 5.4 L Albumin 3.1 L D Globulin 2.3 Albumin/Globulin Ratio 1.3 Procalcitonin 1.35 TSH 3.98 Free T4 1.48 MRSA (PCR) 01/30/25 14:25 WBC RBC Hgb Hct MCV MCH MCHC RDW Plt Count MPV Neut % (Auto) Lymph % (Auto) [place] % (Auto) Eos % (Auto) Baso % (Auto) Neut # (Auto) Lymph # (Auto) [place] # (Auto) Eos # (Auto) Baso # (Auto) Sodium Potassium Chloride Carbon Dioxide Anion Gap BUN Creatinine Estimated Creat Clear Estimated GFR Est GFR ( Amer) Glucose POC Glucose Calcium Total Bilirubin AST ALT Alkaline Phosphatase C-Reactive Protein Total Protein Albumin Globulin Albumin/Globulin Ratio Procalcitonin TSH Free T4 MRSA (PCR) Negative Preliminary micro results at discharge 01/29/25 23:10 Blood Culture - Preliminary Blood NO GROWTH AFTER 24 HOURS 01/29/25 23:10 Blood Culture - Preliminary Blood NO GROWTH AFTER 24 HOURS DS: Diagnosis Discharge Diagnosis (1) Multifocal pneumonia: Status: Acute Code(s): J18.8 - Other pneumonia, unspecified organism Meds Home Medications and Allergies Home Medications ?Medication ?Instructions ?Recorded ?Confirmed ?Type cholecalciferol (vitamin D3) 125 125 mcg PO DAILY 08/2201/30/25 History mcg (5,000 unit) capsule aspirin 81 mg tablet,delayed 81 mg PO DAILY #90 tabs 0 06/12/23 01/30/25 Rx release escitalopram oxalate 10 mg tablet 10 mg PO DAILY #90 t abs 10/01/24 01/30/25 Rx (Lexapro) levothyroxine 100 mcg tablet 100 mcg PO DAILY 01/30/25 01/30/25 History losartan 25 mg tablet 25 mg PO DAILY 01/30/25 10/ History metformin 500 mg tablet,extended 500 mg PO DAILY 01/3001/30/25 History release 24 hr metoprolol succinate 25 mg 25 mg PO DAILY 01/30/25 History tablet,extended release 24 hr ondansetron 4 mg disintegrating 4 mg PO TIDP PRN nause a and 01/30/25 01/30/25 History tablet vomiting pravastatin 40 mg tablet 40 mg PO DAILY 01/30/2501/03 History levofloxacin 750 mg tablet 750 mg PO Q48H 6 days #3 ta bs 01/31/25 Rx sodium chloride 1,000 mg soluble 1,000 mg PO BID 3 day s #6 tabs 01/31/25 Rx tablet New Prescriptions to Start Prescriptions: levofloxacin Hollis Martinez sodium chloride Hollis Martinez Allergies Allergy/AdvReac Type Severity Reaction Status Date / Time shrimp Allergy Severe Hives Verified 01/30/25 08:20 erythromycin base Allergy Intermediate I-HIVES Verified 01/28/25 09:27 (ERYTHROMYCIN BASE) Discharge Plan Disposition Patient Disposition: Home, Self-Care Condition: Fair Discharge Order Discharge Orders: Discharge Order (Routine); Ordered 01/31/25 Ordered By: Hollis Martinez Follow up Plan Follow up with: Jose Dukes MD [Primary Care Provider, Internal Medicine] - 02/07/25 9:00 am Blanca Aguirre MD [Physician, Pulmonology] - 02/06/25 1:00 pm Referral Note: Prescriptions/Medication Reconciliation: New levofloxacin 750 mg tablet 750 mg PO Q48H 6 Days Qty: 3 0RF sodium chloride 1,000 mg tablet,soluble 1,000 mg PO BID 3 Days Qty: 6 0RF Continued aspirin 81 mg tablet,delayed release (DR/EC) 81 mg PO DAILY Qty: 90 3RF escitalopram oxalate [Lexapro] 10 mg tablet 10 mg PO DAILY Qty: 90 2RF cholecalciferol (vitamin D3) 125 mcg (5,000 unit) capsule 125 mcg PO DAILY metformin 500 mg tablet extended release 24 hr 500 mg PO DAILY pravastatin 40 mg tablet 40 mg PO DAILY levothyroxine 100 mcg tablet 100 mcg PO DAILY losartan 25 mg tablet 25 mg PO DAILY metoprolol succinate 25 mg tablet extended release 24 hr 25 mg PO DAILY ondansetron 4 mg tablet,disintegrating 4 mg PO TIDP PRN (Reason: nausea and vomiting) Problem Reconciliation Problems Reviewed?: Yes Patient Discharge Instructions Patient Instructions: DI for Pneumonia in Adults, DI for Hyponatremia, Stop Light Pneumonia, Stop Light Infection Print Language: [place] Citizen Providers Primary Care Provider: Jose Dukes Admit Provider: Hollis Martinez Attending Provider: Hollis Martinez
--- NOTE | 2025-01-31 16:15 | DIET.NUTRFU ---
RD saw patient today prior to discharge meal intake is improving during stay, patient had no dietary concerns. She was agreeable to cardiac diet education-included in discharge paperwork
[2025-01-31 16:32] LABS: POC Glucose,Bedside 188 gm/dL (70-110)
--- NOTE | 2025-02-04 10:43 | SW/DCPLANNER ---
Spoke with patient on the phone. Patient stated that she is improving everyday. Patient stated that she is aware of her upcoming appointments. Patient stated that she was able to get her new medicine picked up. Patient stated that she has no concerns or questions at this time. Gloria Paz
[2025-02-06 08:47] LABS: Osmolality, Urine 497 mOsmol/kg (.)
== END 2025-01-31 17:31 | disposition home or self-care (01) | DRG 871 ==
LOC: ER 22:37 → 2ND 01-30 00:09
PROVIDERS: Emergency Medicine; Nurse Practitioner Acute Care; Admitting Provider Student in an Organized Health Care Education/Training Program; Emergency Provider Student in an Organized Health Care Education/Training Program; PCP Family Medicine; Visit Provider Student in an Organized Health Care Education/Training Program
DX: A41.9 Sepsis, unspecified organism (principal); J18.8 Other pneumonia, unspecified organism; E22.2 Syndrome of inappropriate secretion of antidiuretic hormone; E03.9 Hypothyroidism, unspecified; F32.A Depression, unspecified; I10 Essential (primary) hypertension; E11.9 Type 2 diabetes mellitus without complications; E78.019 Familial hypercholesterolemia, unspecified; E83.42 Hypomagnesemia; F41.9 Anxiety disorder, unspecified; Z79.82 Long term (current) use of aspirin; Z79.890 Hormone replacement therapy; Z79.899 Other long term (current) drug therapy; Z88.1 Allergy status to other antibiotic agents; Z91.013 Allergy to seafood
CPT/HCPCS: 0223U; 36415; 71045; 71275; 80053; 81001; 82962; 83690; 83735; 83880; 83935; 84145; 84439; 84443; 84484; 84540; 85007; 85025; 85378; 86140; 86803; 87040; 87086; 87389; 87641; 89220; 93005; 94618; 94640; 94760; 94761; 99285; J0692; J0696; J1650; J3475; J7030; J7050; J7120; J7131; Q9967

== ENCOUNTER 2025-02-06 13:43 | Outpatient (CLI) | payer MEDICARE, MEDICAID, SELFPAY ==
--- NOTE | 2025-02-06 13:48 | XR_ITS ---
FINAL REPORT CLINICAL HISTORY: pneumonia cough, congestion, soa COMPARISON: 01/31/2025 FINDINGS: PA and lateral views of the chest were obtained. The cardiac and mediastinal silhouettes are within normal limits. There has been interval improvement in the right upper lobe and right middle lobe airspace disease since the prior exam. No new infiltrates are identified. There is no pleural effusion or pneumothorax. No acute osseous abnormality is identified. IMPRESSION: Improvement in the right upper lobe and right middle lobe airspace disease since the prior exam. Recommend follow-up to resolution. Reviewed, Interpreted and Dictated by Norma Matthew MD Transcribed by Roma Boyer Authenticated and [facility]
--- OUTSIDE RECORDS SUMMARY | 2025-02-06 13:50 | XMS_ITS | Clinical Summary ---
Author Organization [facility] Address [address] [place], [place] [id number] Care Team Providers Care Animal Herder Name Role Phone Jose Dukes MD Primary [...] (2 - Td or Tdap) 08/08/2022 08/08/2012 [id number] Vaccine (4 - season) 2024 04/14/2021, 06/25/2020, [...] 11/27/2019 Mammography Breast Diagnostic Tomosynthesis Bilateral at [facility] 01/27/2021 Mammography Breast Diagnostic Tomosynthesis Bilateral at [facility] 01/28/2022 Mammography Breast Diagnostic Tomosynthesis Bilateral at [facility] 02/08/2023 Mammography Breast Screening Tomosynthesis Bilateral at [facility] BREAST COMPOSITION: The breasts are heterogeneously dense, which may obscure small masses. FINDINGS: There are post-biopsy clip(s) present in the left breast. There is no evidence of suspicious masses, calcifications, or other abnormal findings. Jose Dukes MD IMG BI PROCEDURES Final Re sult from Last 3 Months or Most Recently Relevant to Health Maintenance Insurance [employer] Care Teams Animal Herder Relationship Specialty Start Date End Date Jose Dukes MD PCP - General Family Medicine 01/28/22
--- OUTSIDE RECORDS SUMMARY | 2025-02-06 13:50 | XMS_ITS | Clinical Summary ---
Author Organization [facility] Address [address] [place] [id number] Care Team Providers Care Chemistry Lab Instructor Name Role Phone Nathalie Linares Primary Care Provider [phone] Allergies Active Allergy Reactions Criticality Noted Date [...] (07/03/2018): Added automatically from request for surgery [id number] Social History Tobacco Use Types Packs/Day Years [...] A & B MEDICAID [place] Care Teams Chemistry Lab Instructor Relationship Specialty Start Date End Date Nathalie Linares PA PCP - General Physician Assembler Bonding 07/06/18
== END 2025-02-06 23:59 | disposition home or self-care (01) ==
LOC: RAD 13:44
PROVIDERS: PCP Family Medicine; Visit Provider Internal Medicine Pulmonary Disease
DX: J18.9 Pneumonia, unspecified organism (principal)
CPT/HCPCS: 71046

== ENCOUNTER 2025-02-24 14:40 | Outpatient (CLI) | payer MEDICARE, MEDICAID, SELFPAY ==
--- OUTSIDE RECORDS SUMMARY | 2025-02-24 14:50 | XMS_ITS | Clinical Summary ---
Author Organization Healthcare Address [address] [id number] Care Team Providers Care Tobacco Farmworker Name Role Phone Jose Dukes MD Primary [...] 02/08/2023 2:44 PM EST Plan of Treatment Upcoming Encounters Date Type Department Care Team (Late st Contact Info) Description 04/29/2025 4:15 PM EST Appointment [facility] [address] [phone] Health Maintenance Due Date Last Done Comments [...] (2 - Td or Tdap) 08/08/2022 08/08/2012 [id number] Vaccine (4 - season) 2024 04/14/2021, 06/25/2020, [...] Mammography Breast Diagnostic Tomosynthesis Bilateral at [facility] 01/27/2021 Mammography Breast Diagnostic Tomosynthesis Bilateral at [facility] 01/28/2022 Mammography Breast Diagnostic Tomosynthesis Bilateral at [facility] 02/08/2023 Mammography Breast Screening Tomosynthesis Bilateral at [facility] BREAST COMPOSITION: The breasts are heterogeneously dense, which may obscure small masses. FINDINGS: There are post-biopsy clip(s) present in the left breast. There is no evidence of suspicious masses, calcifications, or other abnormal findings. Jose Dukes MD IMG BI PROCEDURES Final Re sult from Last 3 Months or Most Recently Relevant to Health Maintenance Insurance MEDICAID[place] MEDICARE [employer] MEDICARE Care Teams Tobacco Farmworker Relationship Specialty Start Date End Date Jose Dukes MD PCP - General Family Medicine 01/28/22
--- OUTSIDE RECORDS SUMMARY | 2025-02-24 14:50 | XMS_ITS | Clinical Summary ---
Author Organization [facility] Address [address] [place] [phone] Care Team Providers Care Coater Smoking Pipe Name Role Phone Nathalie Linares Primary Care Provider [phone] Allergies Active Allergy Reactions Criticality Noted Date [...] (07/03/2018): Added automatically from request for surgery [id number] Social History Tobacco Use Types Packs/Day Years [...] A & B MEDICAID [place] Care Teams Coater Smoking Pipe Relationship Specialty Start Date End Date Nathalie Linares PA PCP - General Physician Group Therapist 07/06/18
--- NOTE | 2025-02-24 14:54 | XR_ITS ---
FINAL REPORT CLINICAL HISTORY: f/u pneumonia dx 2 weeks ago COMPARISON: 02/06/2025 FINDINGS: PA and lateral views of the chest were obtained. The cardiac and mediastinal silhouettes are within normal limits. There has been interval improvement in the inferior right upper lobe opacity and right middle lobe opacity. There is no pleural effusion or pneumothorax. No acute osseous abnormality is identified. IMPRESSION: Interval improvement in the right upper and right middle lobe opacity. Recommend additional follow-up in 4 to 6 weeks to ensure complete resolution. Reviewed, Interpreted and Dictated by Norma Matthew MD Transcribed by Erin Ortega Authenticated and [facility]
[2025-02-24 15:14] LABS: Hematocrit 39.9 % (37.0-47.0); Hemoglobin 12.6 g/dL (12.2-16.2); Immature Granulocytes % 0.1 %; Mean Corpuscular HGB Conc 31.6 g/dL (31.8-35.4); Mean Corpuscular Hemoglobin 27.0 pg (27.0-31.2); Mean Corpuscular Volume 85.6 fl (81-99); Nucleated Red Blood Cells % 0 %; Platelet Count 202 K/mm3 (142-424); Red Blood Count 4.66 M/mm3 (4.20-5.40); Red Cell Distribution Width-SD 44.2 fL; White Blood Count 6.8 K/mm3 (4.8-10.8)
[2025-02-24 15:52] LABS: Anion Gap 10.3 mEq/L (5-15); Blood Urea Nitrogen 11 mg/dl (7-17); Calcium 9.7 mg/dl (8.4-10.2); Carbon Dioxide 27 mmol/L (22.0-30.0); Chloride 101 mmol/L (98-107); Creatinine,Serum 0.60 mg/dl (0.52-1.04); Estimated Glomerular Filt Rate 98 ml/min (>60); GFR (African American) 118 ML/MIN (>60); Glucose 142 mg/dl (74-100); Potassium 4.3 mmoL/L (3.5-5.1); Sodium 134 mmol/L (136-145)
== END 2025-02-24 23:59 | disposition home or self-care (01) ==
LOC: LAB 14:41
PROVIDERS: PCP Family Medicine; Visit Provider Family Medicine
DX: D72.829 Elevated white blood cell count, unspecified (principal); E87.1 Hypo-osmolality and hyponatremia; J18.8 Other pneumonia, unspecified organism; R91.8 Other nonspecific abnormal finding of lung field
CPT/HCPCS: 36415; 71046; 80048; 85025